=== PATIENT | male | born 1970 | race Caucasian/White ===

== ENCOUNTER 2023-09-21 15:06 | Emergency (ER) | payer OTHER, SELFPAY ==
[2023-09-21 15:10] VITALS: BP 195/94
--- NOTE | 2023-09-21 15:57 | ED.GENMED ---
History of Present Illness
General
Chief Complaint: Skin Problem
Time Seen by Provider: 09/21/23 15:35
Travel History
Have you had any contact with someone who has COVID-19?: No
Do you have any symptoms of coronavirus? Fever > 100 degrees, chills, cough, shortness of breath, sore throat, loss of taste or smell, muscle aches, or headache?: No
History of Present Illness
History of Present Illness:
HPI: The patient comes in with a couple day history of erythema to the tip of the nose. He thinks there may have been some purulent discharge from the left nostril as well. He has had no fevers. He is a diabetic.
EXAM:
GENERAL: Well appearing in no distress
HEENT: Moist oral mucosa, there is erythema noted to the tip of the nose measuring approximately 2 x 2 cm, I did palpate both nostrils and there is no definite palpable abscess to drain
NEUROLOGIC: Excellent strength all extremities, no coordination deficits
PSYCHIATRIC: Appropriate mental status, normal insight and judgement
EXTREMITIES: Nontender, no edema, moves all extremities equally
SKIN: As above
ED COURSE:
3:50 PM: I initially evaluated patient
NUMBER AND COMPLEXITY OF PROBLEMS ADDRESSED AT THE ENCOUNTER
� Chronic conditions affecting care: Diabetes, high blood pressure, hyperlipidemia
� Acute Exacerbation and/or Progression of Chronic Illness: This is an acute problem
� Differential Diagnosis includes: Facial cellulitis, facial abscess, MRSA
AMOUNT AND/OR COMPLEXITY OF DATA TO BE REVIEWED AND ANALYZED
� I performed an independent evaluation of and my interpretation is:
EKG:
CT:
X-rays:
Laboratory Studies:
Other:
� Review of other/old records: Blood sugars in 2018 range from the 100s to 200s
� Clinical information was obtained by an independent historian: I spoke to the the bed
� Prescriptions/Medications Considered but not given:
� Further testing considered but not performed:
RISK OF COMPLICATIONS AND/OR MORBIDITY OR MORTALITY OF PATIENT MANAGEMENT
� Social determinants of health affecting care: Lives at home
� Discussion with other providers:
� Escalation of care including admission/observation vs risk of discharge considered: The patient is well-appearing but is a diabetic. Strongly recommend antibiotics. I have also given a prescription for mupirocin ointment. No
clear indication for admission to the hospital at this time as the area is a relatively small area and he is well-appearing
Past History
Past History
ED Past Medical History: HTN, Hypercholesterolemia and NIDDM
ED Past Surgical History: Other (gastric sleeve 2019, no longer on diabetic medications.)
Social History
Tobacco: Non-smoker
Alcohol: Occasional
Drug: None
Personal:
Living: with family
Family History
Family History: Diabetes
Phy Exam
Physical Exam
Physical Exam:
See HPI
Course
Orders/Labs/Results
Orders:
Orders
09/21/23 15:53
Doxycycline [Vibramycin] 100 mg PO NOW STA
Vital Signs
Initial and Last Documented VS:
Initial Vital Signs
Temp Pulse Resp BP Pulse Ox
97.7 F 70 16 195/94 99
09/21/23 15:10 09/21/23 15:10 09/21/23 15:10 09/21/23 15:10 09/21/23 15:10
Last Documented Vital Signs
Temp Pulse Resp BP Pulse Ox
97.7 F 70 16 195/94 99
09/21/23 15:10 09/21/23 15:10 09/21/23 15:10 09/21/23 15:10 09/21/23 15:10
*Critical Care Note
Total Time (30-74mins, 75-104mins- exclusive of procedures): Not Applicable
ED Attending Note
-
Portions of this chart may have been created with voice recognition software.� Occasional wrong word or��sound alike� substitutions may have occurred due to the inherent limitations of voice recognition software.
Discharge Plan
Departure
Patient Disposition: Home (Routine Discharge)
Date of Disposition: 09/21/23
Time of Disposition: 15:54
Patient with high blood pressure during this ER visit?: Yes
Discharge Problem:
Cellulitis
Instructions: Cellulitis (Skin Infection), Adult (DC), BLOOD PRESSURE
Prescriptions:
New
doxycycline hyclate 100 mg capsule
100 mg PO BID Qty: 14 0RF
mupirocin 2 % ointment
1 applic topical BID Qty: 15 0RF
Rx Instructions:
apply to nostrils twice daily
No Action
atorvastatin 40 MG tablet
40 mg PO QPM
lisinopril-hydrochlorothiazide 1 EACH tablet
1 ea PO BID
glyburide-metformin 1 EACH tablet
2 tab PO BID
pioglitazone 30 MG tablet
30 mg PO DAILY
fenofibrate nanocrystallized 145 MG tablet
145 mg PO QPM
cephalexin 250 MG capsule
250 mg PO QID Qty: 56 0RF
Rx Instructions:
take 4 times per day with 500mg (to make 750mg) for 2 weeks
cephalexin 500 MG capsule
500 mg PO QID Qty: 56 0RF
Rx Instructions:
take 4 times per day with 250mg (to make 750mg) for 2 weeks
cephalexin [Keflex] 500 MG capsule
500 mg PO QID Qty: 40 0RF
sulfamethoxazole-trimethoprim 1 TABLET tablet
1 tab PO BID Qty: 14 0RF
cephalexin 500 MG capsule
500 mg PO BID Qty: 14 0RF
amoxicillin-pot clavulanate 875-125 mg tablet
1 tab PO BID Qty: 14 0RF
Referrals:
Bayard,Esther H., AGRICULTURAL ENGINEERING TEACHER [Family Provider] -
Activity Restrictions/Additional Instructions:
Apply mupirocin ointment inside your nostrils twice daily. Return here if worse. I also recommend you follow your primary care doctor for blood pressure reevaluation as your blood pressure is markedly elevated here.
[2023-09-21 16:10] VITALS: BMI 43.9
[2023-09-21] MEDS: VIBRAMYCIN 100 MG PO (16:12)
[2023-09-21 16:15] VITALS: BP 177/97
== END 2023-09-21 16:19 | disposition home or self-care (01) ==
LOC: EMR 15:06
PROVIDERS: EMERGENCY PHYSICIAN Emergency Medicine; FAMILY PHYSICIAN Nurse Practitioner Family
DX: J34.0 Abscess, furuncle and carbuncle of nose (principal); E11.9 Type 2 diabetes mellitus without complications; E78.00 Pure hypercholesterolemia, unspecified; I10 Essential (primary) hypertension; Z83.3 Family history of diabetes mellitus; Z98.84 Bariatric surgery status
CPT/HCPCS: 99282

== ENCOUNTER 2023-09-23 10:59 | Emergency (ER) | payer OTHER, SELFPAY ==
[2023-09-23 11:12] VITALS: BP 179/95
--- NOTE | 2023-09-23 12:48 | ED.GENMED ---
History of Present Illness
General
Chief Complaint: Skin Problem
Time Seen by Provider: 09/23/23 12:45
Travel History
Have you had any contact with someone who has COVID-19?: No
Do you have any symptoms of coronavirus? Fever > 100 degrees, chills, cough, shortness of breath, sore throat, loss of taste or smell, muscle aches, or headache?: No
History of Present Illness
History of Present Illness:
HPI: I saw this patient 2 days ago. At that time there was concern for soft tissue infection at the tip of the nose/left nostril region. He is a diabetic. We placed him on doxycycline. He comes back today because symptoms have been worsening.
EXAM:
GENERAL: Well appearing in very mild distress
HEENT: Erythema noted to the distal aspect of the soft tissue of the nose, there appears to be a little bit more of a palpable abscess in comparison to when I saw the patient 2 days ago but this is relatively minor
NEUROLOGIC: Excellent strength all extremities, no coordination deficits
PSYCHIATRIC: Appropriate mental status, normal insight and judgement
EXTREMITIES: Nontender, no edema, moves all extremities equally
SKIN: No rash, no lesions
ED COURSE:
12:30 PM: I initially evaluated patient
NUMBER AND COMPLEXITY OF PROBLEMS ADDRESSED AT THE ENCOUNTER
� Chronic conditions affecting care: The patient is a diabetic
� Acute Exacerbation and/or Progression of Chronic Illness: This is an ongoing problem which is acute
� Differential Diagnosis includes: Soft tissue infection, abscess, diabetes complication
AMOUNT AND/OR COMPLEXITY OF DATA TO BE REVIEWED AND ANALYZED
� I performed an independent evaluation of and my interpretation is:
EKG:
CT: I personally reviewed CT imaging and there does appear to be a subcentimeter cystic lesion at the tip of the nose more so on the left side consistent with the location of his concern
X-rays:
Laboratory Studies: White count minimally elevated 11.6, glucose 132
Other:
� Review of other/old records: The patient was admitted with osteomyelitis in 2018
� Clinical information was obtained by an independent historian: I spoke to the at bedside
� Prescriptions/Medications Considered but not given:
� Further testing considered but not performed:
RISK OF COMPLICATIONS AND/OR MORBIDITY OR MORTALITY OF PATIENT MANAGEMENT
� Social determinants of health affecting care: Lives at home
� Discussion with other providers: I initially spoke to ID to get their in put. ID, Dr. Willett recommended admission to the hospital for IV antibiotics.
� Escalation of care including admission/observation vs risk of discharge considered: I notified patient of the blood work results and ID's recommendation. The patient now tells me that he absolutely has to leave before 4 PM for
a meeting that he cannot miss. He said he will come back later tonight for reevaluation, probable admission. I have offered and recommended keeping the patient in the hospital for IV antibiotics but the patient currently declines. I did perform a
needle aspiration after an initial attempt at scalpel incision/drainage which was performed. On the needle aspiration, there was less than 1 mL of purulent drainage removed. Will send this sample down for another wound culture. The patient states
he will come back for admission to the hospital tonight as infectious disease did recommend (via [place] text) that he should be admitted to the hospital. Of note the patient has had osteomyelitis in the past and is a diabetic.
Past History
Past History
ED Past Medical History: HTN, Hypercholesterolemia and NIDDM
ED Past Surgical History: Other (gastric sleeve 2019, no longer on diabetic medications.)
Social History
Tobacco: Non-smoker
Alcohol: Occasional
Drug: None
Personal:
Living: with family
Family History
Family History: Diabetes
Phy Exam
Physical Exam
Physical Exam:
See HPI
Course
Orders/Labs/Results
Orders:
Orders
09/23/23 13:14
Basic Metabolic Panel Urgent
Complete Blood Count/With Diff Urgent
09/23/23 13:17
Ketorolac [Toradol] 15 mg IV NOW STA
09/23/23 13:18
CT Facial Bones W/ Iv Contrast Urgent
Comment:
Reason For Exam: eval for L nasalabscess; failing outpt mgnt
09/23/23 13:22
Wound Culture [Wound/Abscess/Other Culture] Urgent
KANIKA Source: Skin Surface
Specimen Description:
Date Specimen was Collected: 09/23/23
Time Specimen was Collected: 13:18
09/23/23 13:32
Clindamycin 600 mg/50 ml [Cleocin] 600 mg in 50 ml IV NOW
09/23/23 15:42
Wound Culture [Wound/Abscess/Other Culture] Urgent
KANIKA Source: Abscess
Specimen Description:
Abnormal Lab Results
09/23/23
13:14
WBC 11.6 H 10^3/uL
(4.8-10.8)
RBC 4.42 L 10^6/uL
(4.70-6.10)
Hct 37.0 L %
(39.0-52.0)
Absolute Neuts (auto) 8.2 H 10^3/uL
(1.4-6.5)
Absolute Monos (auto) 0.8 H 10^3/uL
(0.1-0.6)
Glucose 132 H mg/dl
(70-99)
09/23/23 13:14
09/23/23 13:14
Vital Signs
Initial and Last Documented VS:
Initial Vital Signs
Temp Pulse Resp BP Pulse Ox
98.0 F 75 20 179/95 98
09/23/23 11:12 09/23/23 11:12 09/23/23 11:12 09/23/23 11:12 09/23/23 11:12
Last Documented Vital Signs
Temp Pulse Resp BP Pulse Ox
98.0 F 75 20 179/95 98
09/23/23 11:12 09/23/23 11:12 09/23/23 11:12 09/23/23 11:12 09/23/23 11:12
Procedures
Incision/Drainage/Joint Aspiration
Left Anterior Face:
Anethesia: 1% Lidocaine
Preparation: cleaned with alcohol wipe
Type of procedure: incise
Nature of site: abscess
Description of abscess: less than 3cm
Loculations broken up: No
How much fluid was obtained?: scant amount
Fluid description: bloody
Treatment: left open for drainage
Additional information:
There is no purulent drainage noted, I incised a subcentimeter region just inside the distal tip of the left nostril medially
*Critical Care Note
Total Time (30-74mins, 75-104mins- exclusive of procedures): Not Applicable
ED Attending Note
-
Portions of this chart may have been created with voice recognition software.� Occasional wrong word or��sound alike� substitutions may have occurred due to the inherent limitations of voice recognition software.
Discharge Plan
Departure
Patient Disposition: Home (Routine Discharge)
Date of Disposition: 09/23/23
Time of Disposition: 15:40
Patient with high blood pressure during this ER visit?: Yes
Discharge Problem:
Abscess of external nose
Instructions: Skin Abscess
Prescriptions:
No Action
atorvastatin 40 MG tablet
40 mg PO QPM
lisinopril-hydrochlorothiazide 1 EACH tablet
1 ea PO BID
glyburide-metformin 1 EACH tablet
2 tab PO BID
pioglitazone 30 MG tablet
30 mg PO DAILY
fenofibrate nanocrystallized 145 MG tablet
145 mg PO QPM
cephalexin 250 MG capsule
250 mg PO QID Qty: 56 0RF
Rx Instructions:
take 4 times per day with 500mg (to make 750mg) for 2 weeks
cephalexin 500 MG capsule
500 mg PO QID Qty: 56 0RF
Rx Instructions:
take 4 times per day with 250mg (to make 750mg) for 2 weeks
cephalexin [Keflex] 500 MG capsule
500 mg PO QID Qty: 40 0RF
sulfamethoxazole-trimethoprim 1 TABLET tablet
1 tab PO BID Qty: 14 0RF
cephalexin 500 MG capsule
500 mg PO BID Qty: 14 0RF
amoxicillin-pot clavulanate 875-125 mg tablet
1 tab PO BID Qty: 14 0RF
doxycycline hyclate 100 mg capsule
100 mg PO BID Qty: 14 0RF
mupirocin 2 % ointment
1 applic topical BID Qty: 15 0RF
Rx Instructions:
apply to nostrils twice daily
Referrals:
UNKNOWN - PT DOES,NOT KNOW [Family Provider] -
Activity Restrictions/Additional Instructions:
I did drain less than 1 mL of purulent drainage with needle aspiration. Her white count is slightly high at 11.6. I did speak to the infectious disease doctor and she does recommend that you be admitted to the hospital. At this point you have
stated that you needed to leave. I encourage you to return for admission to the hospital for further management.
Interventions
Interventions:
*Risk Screen - Suicide Last Done: 09/23/23 13:32
*General Assessment Last Done: 09/23/23 13:05
*Neglect/Abuse Screening Last Done: 09/23/23 13:05
[2023-09-23] MEDS: TORADOL 15 MG IV (13:21)
[2023-09-23 13:22] LABS: % Basophils 0.4 % (0-2); % Eosinophils 1.4 % (0-6); % Immature Granulocytes 0.3 % (0-0.5); % Lymphocytes 20.7 % (20.5-51.1); % Monocytes 6.9 % (1.7-9.3); % Neutrophils 70.3 % (42.2-75.2); Absolute Basophils 0.1 10^3/uL (0-0.2); Absolute Eosinophils 0.2 10^3/uL (0-0.7); Absolute Lymphocytes 2.4 10^3/uL (1.2-3.4); Absolute Monocytes 0.8 10^3/uL (0.1-0.6); Absolute Neutrophils 8.2 10^3/uL (1.4-6.5); Hemoglobin 13.2 g/dL (13.0-18.0); Mean Corp Hgb Conc. 35.7 g/dL (33.0-37.0); Mean Corpuscular Hgb 29.9 pg (27.0-31.0); Mean Corpuscular Volume 83.7 fL (80.0-94.0); Mean Platelet Volume 10.4 fL (7.4-10.4); Nucleated Red Blood Cells % 0 % (-); Platelet Count 231 10^3/uL (130-400); Red Blood Cell Count 4.42 10^6/uL (4.70-6.10); White Blood Cell Count 11.6 10^3/uL (4.8-10.8)
[2023-09-23 13:29] VITALS: BMI 44.5
[2023-09-23 13:43] LABS: Blood Urea Nitrogen 19 mg/dl (9-20); Calcium 9.2 mg/dl (8.4-10.2); Carbon Dioxide 29 mmol/L (22-30); Chloride 106 mmol/L (98-107); Estimated Creatinine Clearance > 125 ml/min; Glucose 132 mg/dl (70-99); Potassium 4.5 mmol/L (3.5-5.1); Sodium 139 mmol/L (135-145); eGFR > 60.00
[2023-09-23] MEDS: CLEOCIN 50 IV (13:57)
== END 2023-09-23 16:02 | disposition home or self-care (01) ==
LOC: EMR 10:59
PROVIDERS: EMERGENCY PHYSICIAN Emergency Medicine; FAMILY PHYSICIAN Nurse Practitioner Family
DX: J34.0 Abscess, furuncle and carbuncle of nose (principal); I10 Essential (primary) hypertension; E78.00 Pure hypercholesterolemia, unspecified; E11.69 Type 2 diabetes mellitus with other specified complication; Z83.3 Family history of diabetes mellitus; Z98.84 Bariatric surgery status
CPT/HCPCS: 10060; 70487; 80048; 85025; 87070; 87147; 87186; 87205; 96365; 96375; 99284; Q9967

== ENCOUNTER 2023-09-23 21:23 | Inpatient (IN) | payer OTHER, SELFPAY ==
[2023-09-23 19:00] VITALS: BP 201/90
--- NOTE | 2023-09-23 20:15 | ED.GENMED ---
History of Present Illness
General
Chief Complaint: Skin Problem
Source: patient
Time Seen by Provider: 09/23/23 20:12
Travel History
Have you had any contact with someone who has COVID-19?: No
Do you have any symptoms of coronavirus? Fever > 100 degrees, chills, cough, shortness of breath, sore throat, loss of taste or smell, muscle aches, or headache?: No
History of Present Illness
History of Present Illness:
53-year-old male with past medical history of hypertension, hyperlipidemia and diabetes seen earlier in this emergency department today for a nasal abscess/cellulitis, had incision and drainage done and was given a dose of antibiotics, it was
recommended to be admitted but patient had to go home to complete some tasks and then came back to the emergency department to be admitted. Patient has no new concerns at this time. Denies any fevers.
Past History
Past History
ED Past Medical History: HTN, Hypercholesterolemia and NIDDM
ED Past Surgical History: Other (gastric sleeve 2019, no longer on diabetic medications.)
Social History
Tobacco: Non-smoker
Alcohol: Occasional
Drug: None
Personal:
Living: with family
Family History
Family History: Diabetes
Review of Systems
Review of Systems
All Other Systems: ROS reviewed and negative except as documented in HPI and ROS
Phy Exam
Physical Exam
Physical Exam:
GENERAL: Alert , in no apparent distress
EYE: conjunctiva clear
Head: Normocephalic atraumatic,
NECK: Supple,
ENT: mmm. Significant erythema and edema of the nose with increased warmth and tenderness to palpation
LUNGS: no acute respiratory distress
NEUROLOGICAL: Alert and oriented
SKIN: Warm and dry, skin intact.
MUSCULOSKELETAL: well perfused.
PSYCH: Normal and appropriate interaction.
Scores
Heart Failure Risk
Heart Failure Risk Score: Not Applicable
Heart Score for Chest Pain Patients
STEMI patient?: Not applicable
Withdrawal Assessment of Alcohol
Withdrawal Assessment Completed?: Not applicable
Course
Orders/Labs/Results
Orders:
Orders
09/23/23 20:13
IV Insert/Care/Rem.- Treatment PRN
Clindamycin 600 mg/50 ml [Cleocin] 600 mg in 50 ml IV NOW
09/23/23 20:19
Ibuprofen [Motrin] 600 mg PO NOW STA
Vital Signs
Initial and Last Documented VS:
Initial Vital Signs
Temp Pulse Resp BP Pulse Ox
97.5 F 79 19 201/90 97
09/23/23 19:00 09/23/23 19:00 09/23/23 19:00 09/23/23 19:00 09/23/23 19:00
Last Documented Vital Signs
Temp Pulse Resp BP Pulse Ox
97.5 F 79 19 201/90 97
09/23/23 19:00 09/23/23 19:00 09/23/23 19:00 09/23/23 19:00 09/23/23 19:00
MDM/Problems Addressed
Differential Diagnosis Includes:
Cellulitis, abscess, no concern for fracture or trauma
MDM/Problems Addressed:
53-year-old male presenting back to the emergency department after being seen earlier today was recommended to be admitted for IV antibiotics by infectious disease. Presents back to the emergency department for IV antibiotics. No further incision
needed at this time. Will notify hospitalist team to evaluate with plan for admission and continued IV antibiotics.
*Pulse Oximetry
Patient hypoxic: no
*Critical Care Note
Total Time (30-74mins, 75-104mins- exclusive of procedures): Not Applicable
Data Reviewed
Review of Other/Old Records Reveals: Records and Radiology Studies
Patient Management
Discussion with other providers: Hospitalist
Escalation/DeEscalation of care consider admission/obs:
Hospitalist is aware and accepts patient for continued evaluation and treatment.
ED Attending Note
-
Portions of this chart may have been created with voice recognition software.� Occasional wrong word or��sound alike� substitutions may have occurred due to the inherent limitations of voice recognition software.
Discharge Plan
Departure
Patient Disposition: Admit
Date of Disposition: 09/23/23
Time of Disposition: 20:21
Presentation/result/management discussed w/ accepting MD/DO: Hospitalist
Discharge Problem:
Abscess of nose, Cellulitis, face
Prescriptions:
No Action
doxycycline hyclate 100 mg capsule
100 mg PO BID Qty: 14 0RF
mupirocin 2 % ointment
1 applic topical BID Qty: 15 0RF
Rx Instructions:
apply to nostrils twice daily
metformin 500 mg tablet
1,000 mg PO BID@0800,1700
atorvastatin 10 mg tablet
10 mg PO HS
amlodipine 5 mg tablet
5 mg PO DAILY
lisinopril-hydrochlorothiazide 20-25 mg tablet
1 tab PO DAILY
tadalafil 10 mg tablet
10 mg PO DAILY PRN (Reason: ed)
Trulicity 1.5 mg/0.5 mL pen injector
1.5 mg SC WEEKLY
Interventions
Interventions:
*Risk Screen - Suicide Last Done: 09/23/23 19:00
*General Assessment Last Done: 09/23/23 19:00
*Neglect/Abuse Screening Last Done: 09/23/23 19:00
*ED COVID-19 Vaccine History Last Done: 09/23/23 19:00
--- NOTE | 2023-09-23 20:46 | HPS.HSE ---
Family Physician
-
Family Physician:
Chief Complaint
-
nasal pain
History of Present Illness
53-year-old male past medical history of hypertension, hypercholesteremia, diabetes, gastric sleeve, osteomyelitis presenting for worsening redness at the tip of his nose for the past 4 days. He came to the emergency room 2 days ago and started on
doxycycline with worsening of symptoms. He came to the emergency room earlier today and EGD performed needle aspiration and I&D with less than 1 mL purulent drainage removed. Wound culture was sent. Patient had to leave the hospital before 4 PM
for a meeting but then came back to the hospital later for admission.
He denies any drainage from the nose there is some roughness and irritation in the left nostril. He denies any fevers or chills.
Denies smoking or alcohol use.
Medical History
Past Medical History
Past Medical History: Reports Other ( hypertension, hypercholesteremia, diabetes, gastric sleeve, osteomyelitis)
Past Surgical History: Reports Other (gastric sleeve )
Social History
Tobacco: Non-smoker
Alcohol: None
Drug: None
Family History
Family History: Not pertinent
Allergies / Home Medications
Allergies reflects when Allergies were last updated in [facility].
Home Medications with original date entered in [facility]
Allergy/Medication List:
Allergies
Allergy/AdvReac Type Severity Reaction Status Date / Time
No Known Allergies Allergy Verified 09/23/23 19:00
Home Medications
doxycycline hyclate 100 mg capsule 100 mg PO BID #14 caps 09/21/23
mupirocin 2 % topical ointment 1 applic topical BID #15 grams 09/21/23
atorvastatin 10 mg tablet 10 mg PO HS 09/23/23
dulaglutide 1.5 mg/0.5 mL subcutaneous pen injector (Trulicity) 1.5 mg SC WILSON 09/23/23
lisinopril 20 mg-hydrochlorothiazide 25 mg tablet 1 tab PO DAILY 09/23/23
metformin 500 mg tablet 500 mg PO BID@0800,1700 09/23/23
multivitamin 1 tab PO DAILY 09/23/23
omega 3-gqw-swm-fish oil 1,000 mg (120 mg-180 mg) capsule (Fish Oil) 1 cap PO DAILY 09/23/23
tadalafil 10 mg tablet 10 mg PO DAILY PRN ed 09/23/23
Review of Systems
-
History Source: Patient
A 12 point ROS was completed and negative except as noted: Yes
Constitutional: Reports No Symptoms
EENT: Reports See HPI
Respiratory: Reports No Symptoms
Cardiac: Reports No Symptoms
Abdomen/GI: Reports No Symptoms
: Reports No Symptoms
Musculoskeletal: Reports No Symptoms
Skin: Reports No Symptoms
Neurological: Reports No Symptoms
Endocrine: Reports No Symptoms
Hematologic/Lymphatic: Reports No Symptoms
Psych: Reports No Symptoms
Physical Exam
Vital Signs
Vital Signs
Temp Pulse Resp BP Pulse Ox
97.5 F 79 19 201/90 97
09/23/23 19:00 09/23/23 19:00 09/23/23 19:00 09/23/23 19:00 09/23/23 19:00
Physical Exam
General: Well Developed, Well Nourished and No Apparent Distress
HEENT: NormoCephalic, Moist mucous membranes, Atraumatic and Other (nasal tenderness )
Respiratory: Clear
Cardiac: S1/S2 and Regular Rhythm; No Murmur or Rub
GI: Soft, Non Tender, Non Distended and Normal Bowel Sounds; No Organomegaly
Rectal: Deferred by Provider
Musculoskeletal: No Clubbing, No Cyanosis and No Edema
Skin: No Rash
Neuro: Nonfocal/grossly intact
Data Reviewed
-
Lab Data: Labs Reviewed by me
Old Records: Reviewed
Impression/Plan
-
IMPRESSION:
PLAN:
# Nasal abscess
-CT facial bones shows collection on the nose concerning for edema/infection
-I&D culture pending
-Clindamycin
-ID consulted
Essential hypertension
-Continue amlodipine, lisinopril/hydrochlorothiazide
Hypercholesterolemia
-Continue statin
Type 2 diabetes
-Continue metformin
History of gastric sleeve
Obesity
History of right great toe osteomyelitis status post partial toe amputation/debridement
Full code
DVT prophylaxis�heparin
Regular diet
[2023-09-23] MEDS: MOTRIN 600 MG PO (20:50)
[2023-09-23 21:52] VITALS: BP 201/102; BMI 45.0
[2023-09-23] MEDS: CLEOCIN 50 IV (22:26)
[2023-09-23] MEDS: APRESOLINE 5 MG IV (22:27)
[2023-09-23] MEDS: LIPITOR 10 MG PO (22:27)
[2023-09-23] MEDS: GLUCOPHAGE 500 MG PO (22:27)
[2023-09-23 23:41] VITALS: BP 162/82
[2023-09-24] MEDS: MOTRIN 400 MG PO ×3 (01:45→17:43)
[2023-09-24] MEDS: CLEOCIN 50 IV ×2 (03:44→09:44)
[2023-09-24] MEDS: TYLENOL 650 MG PO ×2 (03:55→22:54)
[2023-09-24 08:00] VITALS: BP 171/84
[2023-09-24 08:44] LABS: % Basophils 0.4 % (0-2); % Eosinophils 1.7 % (0-6); % Immature Granulocytes 0.4 % (0-0.5); % Lymphocytes 23.8 % (20.5-51.1); % Monocytes 6.4 % (1.7-9.3); % Neutrophils 67.3 % (42.2-75.2); Absolute Eosinophils 0.2 10^3/uL (0-0.7); Absolute Lymphocytes 2.7 10^3/uL (1.2-3.4); Absolute Monocytes 0.7 10^3/uL (0.1-0.6); Absolute Neutrophils 7.6 10^3/uL (1.4-6.5); Hematocrit 35.7 % (39.0-52.0); Hemoglobin 12.6 g/dL (13.0-18.0); Mean Corp Hgb Conc. 35.3 g/dL (33.0-37.0); Mean Corpuscular Hgb 29.9 pg (27.0-31.0); Mean Corpuscular Volume 84.6 fL (80.0-94.0); Mean Platelet Volume 10.8 fL (7.4-10.4); Nucleated Red Blood Cells % 0 % (-); Platelet Count 243 10^3/uL (130-400); Red Blood Cell Count 4.22 10^6/uL (4.70-6.10); Red Cell Dist. Width 13.8 % (11.5-14.5); White Blood Cell Count 11.3 10^3/uL (4.8-10.8)
[2023-09-24] MEDS: GLUCOPHAGE 500 MG PO ×2 (08:51→19:34)
[2023-09-24] MEDS: ORETIC 25 MG PO (08:51)
[2023-09-24] MEDS: ZESTRIL 20 MG PO (08:51)
[2023-09-24] MEDS: THERAGRAN 1 TABLET PO (08:51)
[2023-09-24] MEDS: BACTROBAN 2% OINTMENT 1 APPLIC TOPICAL ×2 (08:51→19:36)
--- NOTE | 2023-09-24 08:58 | W.PN.HOSP.TC ---
Today's Communication/Plan
-
Continue present course of clindamycin
Await ID input and culture results
Monitor blood sugars and BP
Assessment / Plan
Assessment / Plan
53-year-old male past medical history of hypertension, hypercholesteremia, diabetes, gastric sleeve, osteomyelitis presenting for worsening redness at the tip of his nose for the past 4 days.� He came to the emergency room 2 days ago and started on
doxycycline with worsening of symptoms.� He came to the emergency room earlier today and EGD performed needle aspiration and I&D with less than 1 mL purulent drainage removed.� Wound culture was sent.� Patient had to leave the hospital before 4 PM
for a meeting but then came back to the hospital later for admission.
He denies any drainage from the nose there is some roughness and irritation in the left nostril.� He denies any fevers or chills.
Denies smoking or alcohol use.
# Nasal abscess
-CT facial bones shows collection on the nose concerning for edema/infection
-Results with initial course of outpatient doxycycline
-MRSA screen pending
-I&D culture pending
-Clindamycin
-ID consulted
Essential hypertension
-Continue amlodipine, lisinopril/hydrochlorothiazide
Hypercholesterolemia
-Continue statin
Type 2 diabetes
-Continue metformin
History of gastric sleeve
Obesity
History of right great toe osteomyelitis status post partial toe amputation/debridement
Full code
DVT prophylaxis�heparin
Regular diet
Anticipated Discharge: Within 24 hours
Subjective/Interval History
-
Date of Service: September 24, 2023
Tenderness to the left there is redness of the nose
Objective Data
-
Labs:
Laboratory Results
09/24/23
08:03
WBC 11.3 H
Hgb 12.6 L
Hct 35.7 L
Plt Count 243
Sodium Pending
Potassium Pending
Chloride Pending
Carbon Dioxide Pending
BUN Pending
Creatinine Pending
Glucose Pending
Calcium Pending
Total Bilirubin Pending
AST Pending
ALT Pending
Alkaline Phosphatase Pending
Vital Signs:
Vital Signs
Temp Pulse Resp BP Pulse Ox
97.8 F 63 16 171/84 99
09/24/23 08:00 09/24/23 08:51 09/24/23 08:00 09/24/23 08:51 09/24/23 08:00
Review of Systems
-
Constitutional: Reports No Symptoms
EENT: Denies Bloody Nose (Tender medial aspect of left nares)
Respiratory: Reports No Symptoms
Skin: Reports Sores
Physical Exam
-
General: Well Developed
HEENT: Normocephalic; Negative Nose Appears Normal (Left nares medial aspect tender swollen with surrounding erythema to tip of nose no drainage)
Respiratory: Clear to Auscultation
Cardiac: Regular Rhythm
GI: Soft and Nontender
Genito-urinary: Costovertebral Angle Tend
Neuro: Awake, Alert, Oriented and AO x 3
Data Reviewed
-
Total Time Spent with Patient (in minutes): 45
Diagnostic Radiology: Report Reviewed by me (Curved banana shaped low-density collection in the anterior inferior aspect of the nose measuring 7 x 7 x 22 mm)
Labs: Labs Reviewed by me (Initial white count 11.62 pending morning labs)
[2023-09-24 09:13] LABS: ALT (SGPT) 14 U/L (0-50); AST (SGOT) 18 U/L (17-59); Albumin 3.2 g/dl (3.5-5.0); Alkaline Phosphatase 101 U/L (38-126); Blood Urea Nitrogen 21 mg/dl (9-20); Calcium 9.1 mg/dl (8.4-10.2); Carbon Dioxide 28 mmol/L (22-30); Chloride 102 mmol/L (98-107); Estimated Creatinine Clearance 113 ml/min; Glucose 163 mg/dl (70-99); Potassium 4.6 mmol/L (3.5-5.1); Sodium 139 mmol/L (135-145); Total Protein 6.3 g/dl (6.3-8.2); eGFR > 60.00
[2023-09-24 11:01] VITALS: BP 179/97
--- NOTE | 2023-09-24 13:19 | CM ---
Patient seen, initial assessment completed. Patient reports he resides in a multiple story home with his , denies DME, VN, or SNF. Patient confirms PCP Dr. Velazquez, pharmacy [facility]. CM will continue to follow for discharge planning
needs.
Plan; home no needs anticipated.
--- NOTE | 2023-09-24 13:33 | WOUNDNOTE ---
[facility] RN NOTE: Reviewed chart, met with patient. Patient refused assessment at this time. He said the nurse recently wrapped his foot and he did not want to be assessed at this time. He said he follows with [employer], Dr. Guzman weekly. Will try again
at later date. JEAN PAUL Rondon and hospitalist updated.
--- NOTE | 2023-09-24 14:18 | CON.ID ---
Consultation
-
Date/Time Consultation Requested: 09/23/23 21:46
Date/Time Consultation Performed: 09/24/23 14:18
Requesting Provider: Dr Alvarado
Performing Provider: Dr Martinez
Reason for Consultation: nose abscess
Chief Complaint / Past History
Chief Complaint
nose abscess
History of Present Illness
Mr De Oliveira is a 53 year old male with history notable for DM2, class III obesity he first presented here on 09/21 to the ER for erythema of the tip of the nose, purulent drainage from the L nostril, he was prescribed doxycycline, took this for two
days with progression, represented here 09/23 same MD reassessed and felt minimal progression on exam - needle aspiration attempted with 1 ml of purulent drainage removed - sent for culture and has subsequently resulted with s aureus, no blood
cultures done thus far, patient had an appointment at 4 pm left the ER and represented same evening after the appointment for admission.
Since arrival here this admission he has been afebrile, bp consistently hypertensive, wbc 11.3, hgb 12.6, plt 243, no L shift, cr 1.1 from baseline of 0.9, a1c last assessed 05/2018 and was 11.7, aspirate s aureus, currently on clindamycin, CT
facial bones with IV contrast: possible developing abscess with enlarged tonsils. ID is consulted for assistance with management.
Past History
Additional Past Medical History:
hypertension, hypercholesteremia, diabetes, gastric sleeve
Denies any history of osteomyelitis
Additional Past Surgical History:
gastric sleeve
Allergy History:
No Known Allergies Allergy (Verified 09/23/23 19:00)
Medications Reviewed: Yes
Social History
Tobacco: Non-Smoker
Alcohol: None
Drug: None
Family History
Family History: Not Pertinent
Review of Systems
Review of Systems
General: Negative Fever or Chills
All systems: All other systems were reviewed and were negative
Vital Signs
Temp Pulse Resp BP Pulse Ox
97.8 F 63 16 179/97 99
09/24/23 08:00 09/24/23 11:01 09/24/23 08:00 09/24/23 11:01 09/24/23 09:05
Physical Exam
Physical Exam
Constitutional: No Acute Distress and Obese
Head: Other (nose tip swollen, red tender, hot, peau dorange)
Cardiovascular: Regular Rate and S1/S2; Negative Murmur or Rub
Pulmonary: Clear and Symmetric; Negative Wheezes, Rales or Rhonchi
Gastrointestinal: Soft, Non Tender, Non Distended and Normal Bowel Sounds
Skin: Warm and Dry; Negative Rash or Jaundice
Lab / Diagnostic Study Results
09/24/23 08:03
09/24/23 08:03
Abs Immat Gran (auto) 0.0 10^3/uL (0-0.05) 09/24/23 08:03
Absolute Neuts (auto) 7.6 10^3/uL (1.4-6.5) H 09/24/23 08:03
Absolute Lymphs (auto) 2.7 10^3/uL (1.2-3.4) 09/24/23 08:03
Absolute Monos (auto) 0.7 10^3/uL (0.1-0.6) H 09/24/23 08:03
Absolute Basos (auto) 0.0 10^3/uL (0-0.2) 09/24/23 08:03
Immature Gran % 0.4 % (0-0.5) 09/24/23 08:03
Neutrophils % 67.3 % (42.2-75.2) 09/24/23 08:03
Lymphocytes % 23.8 % (20.5-51.1) 09/24/23 08:03
Monocytes % 6.4 % (1.7-9.3) 09/24/23 08:03
Eosinophils % 1.7 % (0-6) 09/24/23 08:03
Basophils % 0.4 % (0-2) 09/24/23 08:03
Microbiology Results
Micro:
09/23/23 22:48 MRSA Screen - Pending
Nose
Assessment / Plan
Nasal Cellulitis with small abscess
Class III Obesity
DM2
- s/p aspiration of the small fluid collection - culture with S aurues
- suspect tonsils enlarged secondary to lymphatic draingae from the tip of the nose
- blood cultures x2
- check a1c
- start vancomycin and high dose cefazolin for now; stop clindamycin
- add probiotics
- follow clinically
Patient requesting d/c advised him firmly that I would not recommend discharge unless it was against medical advice. He risks sepsis, bacteremia, endocarditis, stroke, cerebral abscess, and
--- NOTE | 2023-09-24 15:19 | PHA.VAN.IN ---
Assessment
- Assessment
Renal Function: Appears elevated from baseline (SCR similar but possible slightly elevated at 1.1 vs 0.9 )
Concomitant Antimicrobials: cefazolin
Plan
- Plan
Initial / Loading Dose: Divided load 1500mg x1 now then at 22:00
Maintenance Regimen: dosing by level initially
Monitoring: random 09/25 599
Will follow by level initially to ensure achieving therapeutic level with BMI
Anticipate estimated clearance likely overestimated due to weight
Pharmacokinetics Vancomycin I
- -
Patient Age: 53
Patient Sex: Male
Vancomycin Day #: 1
Indication: Skin And Soft Tissue
Requesting Provider: Dr. Martinez
Pertinent Antimicrobial Allergies:
NKDA
Height / Weight:
Height 5 ft 10 in
Actual Weight 142.201 kg
Pertinent Past Medical History: BMI ~45, DM III
- Vital Signs / Lab Results
Temp Pulse Resp BP Pulse Ox
97.8 F 63 16 179/97 99
09/24/23 08:00 09/24/23 11:01 09/24/23 08:00 09/24/23 11:01 09/24/23 09:05
Lab Results - Hematology
09/24/23
08:03
WBC 11.3 H
Lab Results - Chemistry
09/24/23
08:03
BUN 21 H
Creatinine 1.1
Estimated Creat Clear 113
Albumin 3.2 L
[2023-09-24] MEDS: VISBIOME 2 CAP PO (15:33)
[2023-09-24] MEDS: APRESOLINE 5 MG IV (15:34)
[2023-09-24 15:42] VITALS: BP 193/96
[2023-09-24] MEDS: VANCOCIN 300 MG IV ×2 (16:02→21:12)
[2023-09-24] MEDS: ANCEF 10 IV ×2 (16:02→21:12)
[2023-09-24] MEDS: VANCOCIN 300 ML IV ×2 (16:02→21:12)
[2023-09-24] MEDS: LIPITOR 10 MG PO (19:35)
[2023-09-24 20:04] VITALS: BP 182/94
[2023-09-24 23:26] VITALS: BP 180/85
[2023-09-25] VITALS (8 sets, daily range): BP systolic 160–190; BP diastolic 77–91
[2023-09-25] MEDS: MOTRIN 400 MG PO ×3 (00:46→20:07)
[2023-09-25] MEDS: ANCEF 10 IV ×2 (04:06→09:48)
[2023-09-25 07:31] LABS: Hematocrit 34.3 % (39.0-52.0); Hemoglobin 12.6 g/dL (13.0-18.0); Mean Corp Hgb Conc. 36.7 g/dL (33.0-37.0); Mean Corpuscular Hgb 30.6 pg (27.0-31.0); Mean Corpuscular Volume 83.3 fL (80.0-94.0); Mean Platelet Volume 10.4 fL (7.4-10.4); Platelet Count 230 10^3/uL (130-400); Red Blood Cell Count 4.12 10^6/uL (4.70-6.10); Red Cell Dist. Width 13.9 % (11.5-14.5)
[2023-09-25 07:51] LABS: Vancomycin Random 13.5 ug/ml
[2023-09-25 07:55] LABS: Blood Urea Nitrogen 26 mg/dl (9-20); Calcium 8.6 mg/dl (8.4-10.2); Carbon Dioxide 27 mmol/L (22-30); Chloride 103 mmol/L (98-107); Estimated Creatinine Clearance 113 ml/min; Glucose 166 mg/dl (70-99); Potassium 4.2 mmol/L (3.5-5.1); Sodium 139 mmol/L (135-145); eGFR > 60.00
--- NOTE | 2023-09-25 08:29 | PHA.VAN.FU ---
Vancomycin Assessment / Plan
- Assessment
Renal Function: Stable
WBC's are: Trending Down
In the past 24 hrs, patient has been: Afebrile
Concomitant Antimicrobials: cefazolin
- Assessment - Therapeutic Drug Monitoring
Random Level: 13.5 - drawn ~9H after split load of 3000mg (1500mg x2)
- Dosing Plan
Adjust Regimen to: Vanc 1500mg Q12H - first dose now then 1800
Patient likely does not follow population PK and SCR remains slightly elevated
- Monitoring Plan
Trough Level: pre-steady state 09/26 05:30 to trend levels with BMI and SCR
- Follow Up
Pharmacy will continue to follow.
Vancomycin Follow UP
- -
Patient Age: 53
Patient Sex: Male
Vancomycin Day #: 2
Indication: Skin And Soft Tissue
Requesting Provider: Dr. Martinez
Pertinent Antimicrobial Allergies:
NKDA
Height / Weight:
Height 5 ft 10 in
Actual Weight 142.201 kg
Pertinent Past Medical History: BMI ~45, DM III
- Vital Signs / Lab Results
Temp Pulse Resp BP Pulse Ox
98.1 F 109 18 173/77 95
09/24/23 23:26 09/25/23 03:19 09/24/23 23:26 09/25/23 03:19 09/24/23 23:26
Lab Results - Hematology
09/24/23 09/25/23
08:03 07:03
WBC 11.3 H 9.0
Lab Results - Chemistry
09/24/23 09/25/23
08:03 07:03
BUN 21 H 26 H
Creatinine 1.1 1.1
Estimated Creat Clear 113 113
Albumin 3.2 L
Microbiology Results
09/23/23 22:48 MRSA Screen - Final
Nose No Methicillin Resistant Staphylococcus aureus isolated.
Therapeutic Drug Monitoring
Random Vancomycin 13.5 ug/ml 09/25/23 07:02
[2023-09-25] MEDS: ORETIC 25 MG PO (08:35)
[2023-09-25] MEDS: BACTROBAN 2% OINTMENT 1 APPLIC TOPICAL ×2 (08:35→20:07)
[2023-09-25] MEDS: GLUCOPHAGE 500 MG PO ×2 (08:35→17:47)
[2023-09-25] MEDS: VISBIOME 2 CAP PO (08:36)
[2023-09-25] MEDS: THERAGRAN 1 TABLET PO (08:36)
[2023-09-25] MEDS: ZESTRIL 20 MG PO ×2 (08:36→13:10)
--- NOTE | 2023-09-25 09:02 | W.PN.HOSP.TC ---
Addendum entered and electronically signed by Patricio Mendez MD 09/25/23 16:58:
Hypertensive urgency
I have increased lisinopril to 40 mg daily
Original Note:
Today's Communication/Plan
-
Continue present course of high-dose cefazolin and vancomycin
Await ID input for suggestions on course of outpatient therapy and follow-up
Assessment / Plan
Assessment / Plan
53-year-old male past medical history of hypertension, hypercholesteremia, diabetes, gastric sleeve, osteomyelitis presenting for worsening redness at the tip of his nose for the past 4 days.� He came to the emergency room 2 days ago and started on
doxycycline with worsening of symptoms.� He came to the emergency room earlier today and EGD performed needle aspiration and I&D with less than 1 mL purulent drainage removed.� Wound culture was sent.� Patient had to leave the hospital before 4 PM
for a meeting but then came back to the hospital later for admission.
He denies any drainage from the nose there is some roughness and irritation in the left nostril.� He denies any fevers or chills.
Denies smoking or alcohol use.
# Nasal abscess
-CT facial bones shows collection on the nose concerning for edema/infection
-Results with initial course of outpatient doxycycline
-MRSA screen was negative
-I&D culture with Staph aureus
-Clindamycin after seen by ID changed to high-dose cefazolin IV and vancomycin
-ID consulted for query and suggestions on outpatient course of management
Essential hypertension
-Continue amlodipine, lisinopril/hydrochlorothiazide
-Will increase lisinopril to 40 mg daily as has persistently elevated blood pressure here
As needed hydralazine ordered also
Hypercholesterolemia
-Continue statin
Type 2 diabetes
-Continue metformin
History of gastric sleeve
Obesity
History of right great toe osteomyelitis status post partial toe amputation/debridement
Full code
DVT prophylaxis�heparin
Regular diet
Anticipated Discharge: Within 24 hours
Subjective/Interval History
-
Date of Service: September 25, 2023
Car is exhibiting less pain involved to the nose there is certainly less redness and swelling today as compared to yesterday.
Objective Data
-
Labs:
Laboratory Results
09/25/23
07:03
WBC 9.0
Hgb 12.6 L
Hct 34.3 L
Plt Count 230
Sodium 139
Potassium 4.2
Chloride 103
Carbon Dioxide 27
BUN 26 H
Creatinine 1.1
Glucose 166 H
Calcium 8.6
Vital Signs:
Vital Signs
Temp Pulse Resp BP Pulse Ox
97.8 F 60 16 171/91 97
09/25/23 08:25 09/25/23 08:35 09/25/23 08:25 09/25/23 08:35 09/25/23 08:25
I&O
09/24/23 09/25/23 09/26/23
06:59 06:59 06:59
Intake Total 800 / 800
Balance 800 / 800
Review of Systems
-
History Source: Patient
Constitutional: Reports No Symptoms
EENT: Reports No Symptoms Reported; Denies Sore Throat or Bloody Nose (Swollen tip of nose less erythematous less tender no drainage)
Respiratory: Reports No Symptoms
Cardiac: Reports No Symptoms
Abdomen/GI: Reports No Symptoms
Physical Exam
-
General: Well Developed
HEENT: Nose Appears Normal (Left swollen and tender tip of nose) and Ears Appear Normal
Respiratory: Clear to Auscultation
Psych: Calm
Data Reviewed
-
Total Time Spent with Patient (in minutes): 45
Labs: Labs Reviewed by me (45)
[2023-09-25 09:24] LABS: Glycohemoglobin (HgbA1c) 7.4 % (4.0-5.6)
[2023-09-25] MEDS: VANCOCIN 300 ML IV ×2 (09:48→17:47)
[2023-09-25] MEDS: VANCOCIN 300 MG IV ×2 (09:48→17:47)
[2023-09-25] MEDS: FLUSH (NSS) 2 FLUSH IV (09:49)
--- NOTE | 2023-09-25 10:35 | W.PN.ID1 ---
Addendum entered and electronically signed by Esther Martinez MD 09/25/23 13:21:
isolate MRSA vanc KANIKA 1
stop cefazolin
add linezolid
would still follow clinically another day
Original Note:
Date of Service
Date of Service: September 25, 2023
Today's Communication
awaiting sensi
- continue vancomycin and high dose cefazolin for at least another day - eventual transition to orals planned pending clinical response
- follow clinically
Assessment / Plan
Nasal Cellulitis with small abscess
Class III Obesity
DM2
- s/p aspiration of the small fluid collection - culture with S aureus awaiting sensi
- blood cultures x2 no growth to date
- a1c fair control - would like to see further improvement outpatient in this young man
- continue vancomycin and high dose cefazolin for at least another day - eventual transition to orals planned pending clinical response
- follow clinically
Chief Complaint
-: Other (nose abscess)
Subjective / Review of Systems
afebrile
persistent hypertension noted
leukocytosis resolved
cr stable
a1c 7.4
awaiting sensi
blood cultures no growth to date
crusting over the aspiration site - warm wet compresses
nowe less tender
Vital Signs / Physical Exam
Vital Signs
Vital Signs
Temp Pulse Resp BP Pulse Ox
97.8 F 60 16 171/91 97
09/25/23 08:25 09/25/23 08:35 09/25/23 08:25 09/25/23 08:35 09/25/23 08:25
Physical Exam
Constitutional: No Acute Distress
Head: Other (nose still red, peau dorange; less tender, there is crusting within the nostril at the aspiration site)
Cardiovascular: Regular Rate
Pulmonary: Symmetric and Non Labored
Gastrointestinal: Non Distended
Skin: Dry
Objective Data
Lab Data
Lab Results
09/25/23 07:03
09/25/23 07:03
Estimated Creat Clear 113 ml/min 09/25/23 07:03
Total Bilirubin 1.0 mg/dl (0.2-1.3) 09/24/23 08:03
AST 18 U/L (17-59) 09/24/23 08:03
ALT 14 U/L (0-50) 09/24/23 08:03
Alkaline Phosphatase 101 U/L (38-126) 09/24/23 08:03
Most recent labs reviewed.
Micro Results:
09/23/23 22:48 MRSA Screen - Final
Nose No Methicillin Resistant Staphylococcus aureus isolated.
09/24/23 15:09 Blood Culture - Pending
Blood/Venous
09/24/23 14:43 Blood Culture - Pending
Blood/Venous
[2023-09-25] MEDS: APRESOLINE 5 MG IV ×2 (11:54→23:17)
--- NOTE | 2023-09-25 11:55 | PTCARENOTE ---
Noted on re-check of pt's BP that he remains elevated at 190/90. Pt with slight headache, no dizziness. Administered PRN Hydralazine 5mg IV as per orders for SBP > 185. Made Dr. Mendez aware of above, adding an additional dose of Lisinopril 20mg
po, updated pt on plan, will monitor.
--- NOTE | 2023-09-25 12:33 | PN.CDI ---
CDI
- -
CDI:
Physician Documentation Request
Admit Date: 09/23/23 21:23
Dear Doctor Andrea,
Please review the following and provide your response in the progress notes.
Clinical Indicators:
- Systolic BP 170-200's
- Patient with pmh hypertension
- 09/23-09/25 IV Hydralazine 5mg given x 3
- 09/25 Lisinopril does doubled from 20mg to 40mg daily
Clarify which, if any of the following, is a more accurate diagnosis reflecting the type and acuity of the documented hypertension:
Essential primary hypertension
Hypertensive Urgency - B/P is severely elevated (systolic > or = to 180 or diastolic > or = to 110) but there is no associated organ damage. Symptoms may include: headache, shortness of breath, nosebleeds, severe anxiety. Treatment usually consists
of addition to or adjusting of oral medications and does not generally necessitate hospitalization.
Hypertensive Emergency - B/P is severely elevated (systolic > or = to 180 or diastolic > or = to 110) but can occur at lower levels especially in patients who did not previously have high B/P. There is usually associated organ damage. Symptoms may
include: memory loss, LOC, CVA, [place], angina, renal failure, pulmonary edema. Generally requires more aggressive treatment and a hospitalization.
Hypertensive Crisis - an acute elevation in B/P that can lead to organ damage. Broad term that is further differentiated to include urgency or emergency based on presence of organ damage.
Other (please specify)
Use of terms such as suspected, likely, concern for, or probable (associated with a specific diagnosis that is being evaluated, monitored, or treated as if it exists) are acceptable and can be coded in the inpatient setting, when documented at the
time of discharge.
Thank you,
Jin Sweet RN
CDI Specialist
Please use your independent medical judgment in providing your response.
--- NOTE | 2023-09-25 12:42 | CM ---
Patient seen, reports no new concerns at this time. CM will continue to follow for all discharge planning needs.
Plan; home no needs anticipated, watch for possible IV antibiotics needs.
[2023-09-25] MEDS: ZYVOX 600 MG PO ×2 (13:56→20:07)
--- NOTE | 2023-09-25 14:35 | WOUNDNOTE ---
[facility] RN NOTE: Reviewed chart, met with patient. Patient has left plantar diabetic wound. He follows with [employer] Dr. Guzman and has diabetic shoes at home. He said the plan is for skin graft of plantar wound in the coming weeks. The wound appears
pink and superficial, surrounded by callus. Reviewed importance of blood sugar management and wound healing. Patient states he aware and reports daily BS in 150 range. Most recent HgbA1c is 7.4. Wound was cleaned with normal saline and covered with
silicone border foam. Will follow as needed. Orders confirmed with hospitalist, RN updated. Will follow as needed.
--- NOTE | 2023-09-25 18:00 | PTCARENOTE ---
Pt's BP at 1530 176/83, pt asymptomatic. Pt does not meet administration parameters for PRN Hydralazine as dosing is for SBP > 185, or DBP > 95. Discussed with Dr. Mendez, adding Norvasc 5mg for am, no change for BP meds for now. BP 160/86 at
current time, will continue to monitor closely.
[2023-09-25] MEDS: LIPITOR 10 MG PO (18:01)
[2023-09-26] MEDS: VANCOCIN 300 MG IV (06:26)
[2023-09-26] MEDS: VANCOCIN 300 ML IV (06:26)
[2023-09-26 06:48] LABS: Blood Urea Nitrogen 26 mg/dl (9-20); Calcium 8.7 mg/dl (8.4-10.2); Carbon Dioxide 27 mmol/L (22-30); Chloride 105 mmol/L (98-107); Estimated Creatinine Clearance 113 ml/min; Glucose 203 mg/dl (70-99); Potassium 4.2 mmol/L (3.5-5.1); Sodium 140 mmol/L (135-145); eGFR > 60.00
[2023-09-26 06:53] LABS: Vancomycin Trough 14.5 ug/ml (5-20)
[2023-09-26 07:38] VITALS: BP 158/63
--- NOTE | 2023-09-26 09:00 | W.PN.ID1 ---
Date of Service
Date of Service: September 26, 2023
Today's Communication
- continue linezolid x 11 more days
- follow up with PCP
Assessment / Plan
Nasal Cellulitis with small abscess
Class III Obesity
DM2
- s/p aspiration of the small fluid collection - culture with S aureus awaiting sensi
- blood cultures x2 no growth to date
- a1c fair control - would like to see further improvement outpatient in this young man
- continue linezolid x 11 more days
- follow up with PCP
Chief Complaint
-: Other (nose abscess)
Subjective / Review of Systems
afebrile
bp stable
cr 1.1
vanc tr 14
blood cultures remain no growth
nose no longer with peau d'orange, no longer tender, less red
Vital Signs / Physical Exam
Vital Signs
Vital Signs
Temp Pulse Resp BP Pulse Ox
97.8 F 64 18 158/63 97
09/26/23 07:38 09/26/23 07:38 09/26/23 07:38 09/26/23 07:38 09/26/23 07:38
Physical Exam
Constitutional: No Acute Distress
Head: Other (nose no longer with peau d'orange, no longer tender, less red, no drainage)
Cardiovascular: Regular Rate
Pulmonary: Symmetric and Non Labored
Gastrointestinal: Non Distended
Skin: Dry; Negative Rash or Jaundice
Neurological: Awake
Objective Data
Lab Data
Lab Results
09/25/23 07:03
09/26/23 06:20
Estimated Creat Clear 113 ml/min 09/26/23 06:20
Total Bilirubin 1.0 mg/dl (0.2-1.3) 09/24/23 08:03
AST 18 U/L (17-59) 09/24/23 08:03
ALT 14 U/L (0-50) 09/24/23 08:03
Alkaline Phosphatase 101 U/L (38-126) 09/24/23 08:03
Most recent labs reviewed.
Micro Results:
09/24/23 15:09 Blood Culture - Preliminary
Blood/Venous No Growth in 24 hours- Final report to follow
09/24/23 14:43 Blood Culture - Preliminary
Blood/Venous No Growth in 24 hours- Final report to follow
09/23/23 22:48 MRSA Screen - Final
Nose No Methicillin Resistant Staphylococcus aureus isolated.
Care Review
Plan reviewed with: Physician (Dr Mendez)
--- NOTE | 2023-09-26 09:02 | PHA.VAN.FU ---
Vancomycin Assessment / Plan
- Assessment
Renal Function: Stable
WBC's are: Trending Down
In the past 24 hrs, patient has been: Afebrile
Concomitant Antimicrobials: linezolid
- Assessment - Trough Based Monitoring
Trough Value: 14.5
Level Comments: drawn ~12.5H after 4th total dose
Level relatively stable compared to previous level with possibly slight accumulation
Level drawn after 4th total dose of 1500mg but may not fully be at steady state as initial 2 doses served as a divided loading dose
Currently on Vanc 1500mg Q12H
- Follow Up
Vancomycin discontinued and patient to be discharged
Vancomycin Follow UP
- -
Patient Age: 53
Patient Sex: Male
Vancomycin Day #: 3
Indication: Skin And Soft Tissue
Requesting Provider: Dr. Martinez
Pertinent Antimicrobial Allergies:
NKDA
Height / Weight:
Height 5 ft 10 in
Actual Weight 142.201 kg
Pertinent Past Medical History: BMI ~45, DM III
- Vital Signs / Lab Results
Temp Pulse Resp BP Pulse Ox
97.8 F 64 18 158/63 97
09/26/23 07:38 09/26/23 07:38 09/26/23 07:38 09/26/23 07:38 09/26/23 07:38
Lab Results - Hematology
09/24/23 09/25/23
08:03 07:03
WBC 11.3 H 9.0
Lab Results - Chemistry
09/24/23 09/25/23 09/26/23
08:03 07:03 06:20
BUN 21 H 26 H 26 H
Creatinine 1.1 1.1 1.1
Estimated Creat Clear 113 113 113
Albumin 3.2 L
Microbiology Results
09/24/23 15:09 Blood Culture - Preliminary
Blood/Venous No Growth in 24 hours- Final report to follow
09/24/23 14:43 Blood Culture - Preliminary
Blood/Venous No Growth in 24 hours- Final report to follow
09/23/23 22:48 MRSA Screen - Final
Nose No Methicillin Resistant Staphylococcus aureus isolated.
Therapeutic Drug Monitoring
Vancomycin Trough 14.5 ug/ml (5-20) 09/26/23 06:20
Random Vancomycin 13.5 ug/ml 09/25/23 07:02
[2023-09-26] MEDS: NORVASC 5 MG PO (09:11)
[2023-09-26] MEDS: THERAGRAN 1 TABLET PO (09:12)
[2023-09-26] MEDS: ORETIC 25 MG PO (09:12)
[2023-09-26] MEDS: GLUCOPHAGE 500 MG PO (09:13)
[2023-09-26] MEDS: VISBIOME 2 CAP PO (09:14)
[2023-09-26] MEDS: ZESTRIL 40 MG PO (09:14)
[2023-09-26] MEDS: BACTROBAN 2% OINTMENT 1 APPLIC TOPICAL (09:16)
[2023-09-26] MEDS: ZYVOX 600 MG PO (09:16)
--- NOTE | 2023-09-26 09:38 | W.DS.TRANS ---
DC Summary - Route Driver Salesperson
-
Discharge Instructions:
Discharge Diagnosis/Procedures Nasal cellulitis with small abscess
Methicillin resistant Staph aureus infection
Type 2 diabetes mellitus
Hypertensive urgency
Diet Diabetic, Carb Controlled
Activity No restrictions
Additional Activity Apply moist heating plant to area for the next
week
Instructions:
Stand-Alone Forms:
Changes to Home Medications: Yes
Discharge Medications:
DC Medications w/original date entered in [employer]
mupirocin 2 % topical ointment 1 applic topical BID #15 grams 09/21/23
atorvastatin 10 mg tablet 10 mg PO HS High Cholesterol 09/23/23
dulaglutide 1.5 mg/0.5 mL subcutaneous pen injector (Trulicity) 1.5 mg SC WILSON Diabetes 09/23/23
lisinopril 20 mg-hydrochlorothiazide 25 mg tablet 1 tab PO DAILY Blood Pressure 09/23/23
metformin 500 mg tablet 500 mg PO BID@0800,1700 Diabetes 09/23/23
multivitamin 1 tab PO DAILY Supplement 09/23/23
omega 1-kbg-mfv-fish oil 1,000 mg (120 mg-180 mg) capsule (Fish Oil) 1 cap PO DAILY Supplement 09/23/23
tadalafil 10 mg tablet 10 mg PO DAILY PRN ed 09/23/23
amlodipine 5 mg tablet 5 mg PO DAILY #0 tabs 09/26/23
linezolid 600 mg tablet 600 mg PO BID #22 tabs 09/26/23
Home Medication Changes
linezolid 600 mg tablet 600 mg PO BID #22 tabs 09/26/23
Pending Results: No
Total time spent discharging patient (in min): 45
--- NOTE | 2023-09-26 10:38 | W.DCSUMMARY ---
Discharge Summary
Discharge Data
Date of Admission: 09/23/23
Date of Discharge: 09/26/23
-
Pending Results: No
Hospital Course
This is a 53-year-old male with known history of hypertension and diabetes mellitus who presented with a swollen and very tender left nares and nasal prominence with erythema he was seen and evaluated in the emergency room and attempted aspiration
of a small amount of fluid that was purulent and returned and sent for culture he was subsequently admitted to the medical service and placed on wide spectrum antibiotic coverage. He had actually failed an outpatient course of doxycycline as
empiric management included initiation of clindamycin however ID was consulted and placed the patient on combination of vancomycin and high-dose cefazolin stopping the clindamycin with the addition of probiotics the patient was also instructed on a
moist heating pad to be applied to the area while awaiting culture results which turned out to be positive for methicillin-resistant Staph aureus he has subsequently had significant improvement with diminishing erythema tenderness and no further
drainage and is now felt to be amenable to outpatient therapy and he will be placed on linezolid 600 mg twice a day for the next 11 days. He is to continue on [id number] probiotic. And continuation of moist heating pad applied to the area
several times a day. Blood cultures have remained negative for no growth to date/patient had several episodes of hypertensive urgency throughout the course of the admission and we came to find the patient did not list his amlodipine at the time of
presentation that he been taken on and we added that the day prior to his discharge and this is returned his BP readings to his baseline. He will follow-up with his primary care provider and we stressed the importance of diabetic management and
avoiding hypoglycemia
Discharge Plan
-
Patient Disposition: Home (Routine Discharge)
Discharge Diagnosis/Procedures: Nasal cellulitis with small abscess
Methicillin resistant Staph aureus infection
Type 2 diabetes mellitus
Hypertensive urgency
Diet: Diabetic, Carb Controlled
Activity: No restrictions
Additional Activity: Apply moist heating plant to area for the next week
Activity Restrictions/Additional Instructions:
Wound Care Instructions Left Foot Wound- Clean with normal saline or soap and water. Apply silicone border foam. Change Q 48 hours and as needed if loose or soiled. Follow up with Dr. Guzman as scheduled.
Take [id number] probiotic while on antibiotic therapy and for 1 week after finishing
Referrals:
Esther Velazquez CRNP [Family Provider] - in less than 1 week
Prescriptions:
New
amlodipine 5 mg Tablet
5 mg PO DAILY Qty: 0 0RF
linezolid 600 mg Tablet
600 mg PO BID Qty: 22 0RF
Continued
mupirocin 2 % ointment
1 applic topical BID Qty: 15 0RF
Rx Instructions:
apply to nostrils twice daily
metformin 500 mg tablet
500 mg PO BID@0800,1700
atorvastatin 10 mg tablet
10 mg PO HS
lisinopril-hydrochlorothiazide 20-25 mg tablet
1 tab PO DAILY
tadalafil 10 mg tablet
10 mg PO DAILY PRN (Reason: ed)
Trulicity 1.5 mg/0.5 mL pen injector
1.5 mg SC WILSON
multivitamin Tablet
1 tab PO DAILY
omega 0-xsm-doj-fish oil [Fish Oil] 1,000 mg (120 mg-180 mg) Capsule
1 cap PO DAILY
Discontinued
doxycycline hyclate 100 mg capsule
100 mg PO BID
Discharge Orders:
Discharge Patient (As Directed); Ordered 09/26/23
Ordered By: Patricio Mendez
[2023-09-26 11:38] VITALS: BP 160/89
--- NOTE | 2023-09-26 12:47 | CM ---
Chart reviewed, patient for discharge today, home no needs. CM will continue to follow for discharge planning needs.
Plan; home no needs.
== END 2023-09-26 12:11 | disposition home or self-care (01) | DRG 155 ==
LOC: 4 EAST ACU 21:23
PROVIDERS: ADMITTING PHYSICIAN Hospitalist; ATTENDING PHYSICIAN Internal Medicine; CONSULT PHYSICIAN Student in an Organized Health Care Education/Training Program; EMERGENCY PHYSICIAN Emergency Medicine; FAMILY PHYSICIAN Nurse Practitioner Family
DX: J34.0 Abscess, furuncle and carbuncle of nose (principal); Z68.42 Body mass index [BMI] 45.0-49.9, adult; J32.9 Chronic sinusitis, unspecified; I10 Essential (primary) hypertension; I16.0 Hypertensive urgency; E11.9 Type 2 diabetes mellitus without complications; E66.9 Obesity, unspecified; Z79.84 Long term (current) use of oral hypoglycemic drugs; Z98.84 Bariatric surgery status
CPT/HCPCS: 80048; 80053; 80202; 83036; 85025; 85027; 87040; 87070; 99284

== ENCOUNTER → 2023-10-18 07:30 | Outpatient (REF) | payer OTHER, SELFPAY ==
[2023-10-18 08:56] LABS: % Basophils 0.4 % (0-2); % Eosinophils 2.7 % (0-6); % Immature Granulocytes 0.3 % (0-0.5); % Lymphocytes 38.4 % (20.5-51.1); % Neutrophils 50.2 % (42.2-75.2); Absolute Eosinophils 0.2 10^3/uL (0-0.7); Absolute Lymphocytes 2.7 10^3/uL (1.2-3.4); Absolute Monocytes 0.6 10^3/uL (0.1-0.6); Absolute Neutrophils 3.6 10^3/uL (1.4-6.5); Hematocrit 35.3 % (39.0-52.0); Hemoglobin 12.4 g/dL (13.0-18.0); Mean Corp Hgb Conc. 35.1 g/dL (33.0-37.0); Mean Corpuscular Hgb 29.5 pg (27.0-31.0); Mean Corpuscular Volume 83.8 fL (80.0-94.0); Mean Platelet Volume 10.8 fL (7.4-10.4); Nucleated Red Blood Cells % 0 % (-); Platelet Count 228 10^3/uL (130-400); Red Blood Cell Count 4.21 10^6/uL (4.70-6.10); Red Cell Dist. Width 14.6 % (11.5-14.5); White Blood Cell Count 7.1 10^3/uL (4.8-10.8)
[2023-10-18 09:07] LABS: INR 1.01; PT 13.1 Sec (11.4-14.6)
[2023-10-18 09:08] LABS: APTT 35.4 Sec (23.4-35.0)
[2023-10-18 09:40] LABS: ALT (SGPT) 22 U/L (0-50); AST (SGOT) 21 U/L (17-59); Albumin 3.8 g/dl (3.5-5.0); Alkaline Phosphatase 80 U/L (38-126); Blood Urea Nitrogen 30 mg/dl (9-20); Calcium 9.3 mg/dl (8.4-10.2); Carbon Dioxide 28 mmol/L (22-30); Chloride 102 mmol/L (98-107); Glucose 181 mg/dl (70-99); Potassium 4.2 mmol/L (3.5-5.1); Sodium 138 mmol/L (135-145); Total Protein 6.9 g/dl (6.3-8.2); eGFR > 60.00
== END ==
LOC: RCS 07:30
PROVIDERS: ATTENDING PHYSICIAN Podiatrist Foot & Ankle Surgery; FAMILY PHYSICIAN Nurse Practitioner Family
DX: L97.522 Non-pressure chronic ulcer of other part of left foot with fat layer exposed (principal); M25.775 Osteophyte, left foot
CPT/HCPCS: 36415; 71046; 80053; 85025; 85610; 85730; 93005

== ENCOUNTER 2023-11-02 17:32 | Emergency (ER) | payer OTHER, SELFPAY ==
[2023-11-02 17:36] VITALS: BP 163/90
--- NOTE | 2023-11-02 18:58 | ED.GENMED ---
History of Present Illness
General
Chief Complaint: Skin Problem
Source: patient and spouse
Exam Limitations: none
Time Seen by Provider: 11/02/23 17:56
Nursing documentation reviewed up to this point in time: agreed with
Travel History
Have you had any contact with someone who has COVID-19?: No
Do you have any symptoms of coronavirus? Fever > 100 degrees, chills, cough, shortness of breath, sore throat, loss of taste or smell, muscle aches, or headache?: No
History of Present Illness
History of Present Illness:
53-year-old male past medical history of NIDDM presenting to the emergency department today with concerns of an abscess to the left side of his forehead noticed this a few days after popping a pimple. Denies any fevers or systemic symptoms.
Past History
Past History
ED Past Medical History: HTN, Hypercholesterolemia and NIDDM
ED Past Surgical History: Other (gastric sleeve 2019, no longer on diabetic medications.)
Social History
Tobacco: Non-smoker
Alcohol: Occasional
Drug: None
Personal:
Living: with family
Family History
Family History: Diabetes
Review of Systems
Review of Systems
Allergies reviewed?: Yes
All Other Systems: ROS reviewed and negative except as documented in HPI and ROS
Phy Exam
Physical Exam
Physical Exam:
GENERAL: Alert , in no apparent distress
EYE: pupils equal and reactive
NECK: Supple, no significant adenopathy.
ENT: Left lateral forehead 2 cm in diameter area of redness swelling induration without significant fluctuance small break in the skin centrally. o/p clr, mmm.
CARDIAC: Regular rate and rhythm .
LUNGS: Clear breath sounds bilaterally, no acute respiratory distress, no wheezes/rales/rhonchi
ABDOMEN: Soft, without focal tenderness, no r/g, no cvat
NEUROLOGICAL: Alert and oriented, no focal neuro deficits
SKIN: Warm and dry, skin intact.
MUSCULOSKELETAL: No edema, well perfused.
PSYCH: Normal and appropriate interaction.
Course
Orders/Labs/Results
Orders:
Orders
11/02/23 18:57
Sulfamethox./Trimethoprim Ds [Bactrim Ds 800 mg/160 mg] 2 tablet PO NOW STA
Vital Signs
Initial and Last Documented VS:
Initial Vital Signs
Temp Pulse Resp BP Pulse Ox
98.3 F 71 16 163/90 98
11/02/23 17:36 11/02/23 17:36 11/02/23 17:36 11/02/23 17:36 11/02/23 17:36
Last Documented Vital Signs
Temp Pulse Resp BP Pulse Ox
98.3 F 71 16 163/90 98
11/02/23 17:36 11/02/23 17:36 11/02/23 17:36 11/02/23 17:36 11/02/23 17:36
Procedures
Incision/Drainage/Joint Aspiration
Left Forehead:
Anethesia: 1% Lidocaine with Epi
Preparation: cleaned with alcohol wipe
Type of procedure: incise and drain
Nature of site: abscess
Description of abscess: less than 3cm
Loculations broken up: Yes
How much fluid was obtained?: scant amount
Fluid description: purulent
Treatment: left open for drainage
MDM/Problems Addressed
MDM/Problems Addressed:
53-year-old male presenting to the emergency department today with concerns of what appears to be a small abscess to the left lateral forehead this occurred after popping a pimple a few days ago. Area is red warm tender to palpation small stab
incision was performed with a small amount of purulent drainage otherwise covered and started on Bactrim to reduce risk of recurrence otherwise stable for discharge return precautions given.
*Critical Care Note
Total Time (30-74mins, 75-104mins- exclusive of procedures): Not Applicable
ED Attending Note
-
Portions of this chart may have been created with voice recognition software.� Occasional wrong word or��sound alike� substitutions may have occurred due to the inherent limitations of voice recognition software.
Discharge Plan
Departure
Patient Disposition: Home (Routine Discharge)
Date of Disposition: 11/02/23
Time of Disposition: 19:00
Patient with high blood pressure during this ER visit?: No
Condition: Good
Covid-19: Not Applicable
Discharge Problem:
Abscess of face
Instructions: Skin Abscess
Prescriptions:
New
sulfamethoxazole-trimethoprim [Bactrim DS] 800-160 mg tablet
2 tab PO BID 3 Days Qty: 12 0RF
No Action
mupirocin 2 % ointment
1 applic topical BID Qty: 15 0RF
Rx Instructions:
apply to nostrils twice daily
metformin 500 mg tablet
500 mg PO BID@0800,1700
atorvastatin 10 mg tablet
10 mg PO HS
lisinopril-hydrochlorothiazide 20-25 mg tablet
1 tab PO DAILY
tadalafil 10 mg tablet
10 mg PO DAILY PRN (Reason: ed)
Trulicity 1.5 mg/0.5 mL pen injector
1.5 mg SC WILSON
multivitamin Tablet
1 tab PO DAILY
omega 8-axw-sue-fish oil [Fish Oil] 1,000 mg (120 mg-180 mg) Capsule
1 cap PO DAILY
amlodipine 5 mg Tablet
5 mg PO DAILY Qty: 0 0RF
linezolid 600 mg Tablet
600 mg PO BID Qty: 22 0RF
Referrals:
Esther Velazquez CRNP [Family Provider] -
Activity Restrictions/Additional Instructions:
You came to the emergency department today with concerns of an abscess to the left forehead. Please take Bactrim 2 pills twice daily for the next 3 days to reduce risk of recurrence. Please also use mupirocin to your nose twice daily over the next
5 days as well as chlorhexidine body wash once daily for the next week. Return to the emergency department for any worsening, new or concerning symptoms.
Interventions
Interventions:
*General Assessment Last Done: 11/02/23 18:40
*Neglect/Abuse Screening Last Done: 11/02/23 18:40
ED- Fall Risk Assessment Last Done: 11/02/23 18:40
*ED COVID-19 Vaccine History Last Done: 11/02/23 17:36
ED-Skin Assessment Last Done: 11/02/23 18:40
[2023-11-02] MEDS: BACTRIM DS 800 MG/160 MG 2 TABLET PO (19:05)
== END 2023-11-02 19:12 | disposition home or self-care (01) ==
LOC: EMR 17:32
PROVIDERS: EMERGENCY PHYSICIAN Emergency Medicine; FAMILY PHYSICIAN Nurse Practitioner Family
DX: L02.01 Cutaneous abscess of face (principal); E11.9 Type 2 diabetes mellitus without complications; E78.00 Pure hypercholesterolemia, unspecified; I10 Essential (primary) hypertension; Z83.3 Family history of diabetes mellitus; Z98.84 Bariatric surgery status
CPT/HCPCS: 99282; 10060

== ENCOUNTER → 2023-11-26 13:27 | Outpatient (REF) | payer OTHER, SELFPAY | LOC: HWRAD 13:27 | PROVIDERS: ATTENDING PHYSICIAN Podiatrist Foot & Ankle Surgery; FAMILY PHYSICIAN Nurse Practitioner Family | DX: M79.605 Pain in left leg (principal); R60.0 Localized edema | CPT/HCPCS: 93971 ==

== ENCOUNTER 2023-11-30 21:43 | Emergency (ER) | payer OTHER, SELFPAY ==
[2023-11-30 21:44] VITALS: BP 158/68
--- NOTE | 2023-12-01 00:13 | ED.GENMED ---
History of Present Illness
General
Chief Complaint: Skin Problem
Source: patient and spouse
Time Seen by Provider: 11/30/23 23:33
Travel History
Have you had any contact with someone who has COVID-19?: No
Do you have any symptoms of coronavirus? Fever > 100 degrees, chills, cough, shortness of breath, sore throat, loss of taste or smell, muscle aches, or headache?: No
History of Present Illness
History of Present Illness:
This patient is a 53-year-old male who had a toe straightening procedure of his left foot on November 04. Since that time, he has noted swelling of his ankle leg which she believes is related to the dressing being too tight initially as well as him
going back to work and being on his feet a lot. He did have an ultrasound performed 5 days ago that was negative for a DVT or other abnormalities. He got concerned yesterday because he noticed that the 'top of my toe' appeared erythematous. He
denies fever, chills, nausea, vomiting, numbness. He saw his foot doctor on Friday and was noted to have slight clear drainage at that time which she was reassured is expected and unremarkable. This drainage has not increased or become purulent or
foul-smelling. He denies any other complaints. Patient was put on Bactrim about a week ago for which he is compliant.
Past History
Past History
ED Past Medical History: HTN, Hypercholesterolemia and NIDDM
ED Past Surgical History: Orthopedic and Other (gastric sleeve 2019)
Social History
Tobacco: Non-smoker
Alcohol: Occasional
Drug: None
Personal:
Living: with family
Family History
Family History: Diabetes
Phy Exam
Physical Exam
Physical Exam:
GENERAL: Alert , in no apparent distress
EYE: pupils equal and reactive
NECK: Supple, no significant adenopathy.
ENT: o/p clr, mmm.
CARDIAC: Regular rate and rhythm .
LUNGS: Clear breath sounds bilaterally, no acute respiratory distress, no wheezes/rales/rhonchi
ABDOMEN: Soft, without focal tenderness, no r/g, no cvat
NEUROLOGICAL: Alert and oriented, no focal neuro deficits
SKIN: Warm and dry, L great toe with area of healing wound plnt aspect, no purulence/active drainage/foul smell. There is an area of sl warmth and erythema dorsal aspect L great toe without fluctuance, crepitus or other abnl. Very faint erythema
at distal tib/fib area.
MUSCULOSKELETAL: L mild asx LE edema, well perfused.
PSYCH: Normal and appropriate interaction.
Course
Orders/Labs/Results
Orders:
Orders
12/01/23 00:12
Amoxicillin 875 mg/Clav 125 mg [Augmentin 875 mg/125 mg] 1 tablet PO NOW STA
Vital Signs
Initial and Last Documented VS:
Initial Vital Signs
Temp Pulse Resp BP Pulse Ox
98 F 74 18 158/68 100
11/30/23 21:44 11/30/23 21:44 11/30/23 21:44 11/30/23 21:44 11/30/23 21:44
Last Documented Vital Signs
Temp Pulse Resp BP Pulse Ox
98 F 74 18 158/68 100
11/30/23 21:44 11/30/23 21:44 11/30/23 21:44 11/30/23 21:44 11/30/23 21:44
*Critical Care Note
Total Time (30-74mins, 75-104mins- exclusive of procedures): Not Applicable
Update Note
Update Note:
Patient presents to the Emergency Department with ___L foot redness
Number and Complexity of Problems Addressed at the Encounter
� Chronic conditions affecting care:
� Acute Exacerbation and/or Progression of Chronic Illness:
� Differential Diagnosis includes: But not limited to cellulitis, abscess, osteomyelitis, allergic reaction, etc.
Amount and/or Complexity of Data to be Reviewed and Analyzed
� I performed an independent evaluation of and my interpretation is:
EKG:
CT:
Xrays:
Laboratory Studies:
Other:
� Review of other/old records reveals: Patient was in the hospital September of this year with an abscess of his nose, positive for MRSA
� Clinical information was obtained by an independent historian: Spouse who is at bedside
� Prescriptions/Medications Considered but not given:
� Further testing considered but not performed:
Risk of Complications and/or Morbidity or Mortality of Patient Management
� Social determinants of health affecting care:
� Discussion with other providers (PCP, Hospitalists, Consultants, etc):
� Escalation of care including admission/observation vs risk of discharge considered: Patient extremely nontoxic and well-appearing highly doubt sepsis/bacteremia. Patient has only had symptoms for approximately 24 to 48 hours.
He is due to see his doctor in the morning. D/w him option for admission/iv abx vs begin po abx here (in addition to bactrim) to expand coverage, with f/u in AM for reassessment. He would prefer to be discharged. Understands import of f/u, higher
risk of progression given diabetes, reasons to rted, etc.
ED Attending Note
-
Portions of this chart may have been created with voice recognition software.� Occasional wrong word or��sound alike� substitutions may have occurred due to the inherent limitations of voice recognition software.
Discharge Plan
Departure
Patient Disposition: Home (Routine Discharge)
Date of Disposition: 12/01/23
Time of Disposition: 00:13
Patient with high blood pressure during this ER visit?: Yes
Condition: Good
Discharge Problem:
Cellulitis
Instructions: Cellulitis (Skin Infection), Adult (DC), BLOOD PRESSURE
Prescriptions:
New
amoxicillin-pot clavulanate 875-125 mg tablet
1 tab PO BID Qty: 14 0RF
No Action
mupirocin 2 % ointment
1 applic topical BID Qty: 15 0RF
Rx Instructions:
apply to nostrils twice daily
metformin 500 mg tablet
500 mg PO BID@0800,1700
atorvastatin 10 mg tablet
10 mg PO HS
lisinopril-hydrochlorothiazide 20-25 mg tablet
1 tab PO DAILY
tadalafil 10 mg tablet
10 mg PO DAILY PRN (Reason: ed)
Trulicity 1.5 mg/0.5 mL pen injector
1.5 mg SC WILSON
multivitamin Tablet
1 tab PO DAILY
omega 4-sdm-pni-fish oil [Fish Oil] 1,000 mg (120 mg-180 mg) Capsule
1 cap PO DAILY
amlodipine 5 mg Tablet
5 mg PO DAILY Qty: 0 0RF
linezolid 600 mg Tablet
600 mg PO BID Qty: 22 0RF
sulfamethoxazole-trimethoprim [Bactrim DS] 800-160 mg tablet
2 tab PO BID 3 Days Qty: 12 0RF
Referrals:
UNKNOWN - PT NOT,INTERVIEWE [Family Provider] -
Activity Restrictions/Additional Instructions:
PLEASE SEE YOUR FOOT DOCTOR TOMORROW SCHEDULED. CONTINUE BACTRIM, AND ADD THIS NEW ANTIBIOTIC PRESCRIBED. IF YOU DEVELOP FEVER, CHILLS, INCREASING/NEW SWELLING, INCREASING/NEW REDNESS, FOUL SMELLING DRAINAGE, NUMBNESS, WEAKNESS, OR OTHER
WORRISOME SIGNS, GO TO THE ER IMMEDIATELY!
Interventions
Interventions:
*Risk Screen - Suicide Last Done: 11/30/23 21:44
*Neglect/Abuse Screening Last Done: 11/30/23 21:44
ED-Skin Assessment Last Done: 12/01/23 00:02
Discharge Date and Time
Print Language: LATVIAN
[2023-12-01] MEDS: AUGMENTIN 875 MG/125 MG 1 TABLET PO (00:25)
[2023-12-01 00:26] VITALS: BP 156/71
== END 2023-12-01 00:38 | disposition home or self-care (01) ==
LOC: EMR 21:43
PROVIDERS: EMERGENCY PHYSICIAN Emergency Medicine; FAMILY PHYSICIAN Nurse Practitioner Family
DX: L03.90 Cellulitis, unspecified (principal); I10 Essential (primary) hypertension; E78.00 Pure hypercholesterolemia, unspecified; E11.9 Type 2 diabetes mellitus without complications; Z83.3 Family history of diabetes mellitus; Z98.84 Bariatric surgery status
CPT/HCPCS: 99282

== ENCOUNTER → 2023-12-14 06:43 | Outpatient (REF) | payer OTHER, SELFPAY | LOC: MRI 3T 06:43 | PROVIDERS: ATTENDING PHYSICIAN Podiatrist Foot & Ankle Surgery; FAMILY PHYSICIAN Nurse Practitioner Family | DX: M71.072 Abscess of bursa, left ankle and foot (principal); M86.172 Other acute osteomyelitis, left ankle and foot | CPT/HCPCS: 73718 ==

== ENCOUNTER 2024-01-31 13:20 | Emergency (ER) | payer OTHER, SELFPAY ==
[2024-01-31 13:23] VITALS: BP 153/74
--- NOTE | 2024-01-31 14:26 | ED.GENMED ---
History of Present Illness
General
Chief Complaint: Skin Problem
Source: patient and family
Exam Limitations: none
Time Seen by Provider: 01/31/24 13:53
Travel History
Have you had any contact with someone who has COVID-19?: No
Do you have any symptoms of coronavirus? Fever > 100 degrees, chills, cough, shortness of breath, sore throat, loss of taste or smell, muscle aches, or headache?: No
History of Present Illness
History of Present Illness:
53-year-old male who presents with rash to the upper and right lateral lower lip. Patient states he typically goes to a burns for larson trimming and usually has a full larson. Recently the burns scaled back the hair on his upper lip and just
below his lower lip. He then went home and used a razor shaved against the grain. Patient does have a history of MRSA and is currently on linezolid as an outpatient. He denies fevers.
Past History
Past History
ED Past Medical History: HTN, Hypercholesterolemia, NIDDM and Other (MRSA)
ED Past Surgical History: Orthopedic and Other (gastric sleeve 2019)
Social History
Tobacco: Non-smoker
Alcohol: Occasional
Drug: None
Personal:
Living: with family
Family History
Family History: Diabetes
Phy Exam
Physical Exam
Physical Exam:
CONSTITUTIONAL Vital signs reviewed, Patient alert and oriented to person, place and time. Well-appearing
HEAD atraumatic, normocephalic.
EYES eyelids normal to inspection, Extraocular muscles intact, Conjunctiva normal, Sclera normal.
ENT folliculitis noted to the midline upper lip to the left. There is some induration in this area. No vesicles but small pustule noted. Lower lip on the right lateral aspect does show red-based folliculitis. No obvious vesicles.
NECK normal range of motion, Trachea midline, no jugular venous distention.
RESP no respiratory distress
BACK No obvious deformities
UPPER EXTREMITY Gross Range of motion normal, gross motor strength normal
LOWER EXTREMITY Gross range of motion normal, Gross motor strength normal
NEURO Speech normal, No focal motor deficits include, Jesus coma scale 15, Memory normal, Cranial Nerves intact to screening exam.
SKIN Skin warm, dry, and normal in color.
PSYCHIATRIC Patient oriented to person place and time, Normal affect.
Course
Vital Signs
Initial and Last Documented VS:
Initial Vital Signs
Temp Pulse Resp BP Pulse Ox
98.2 F 83 16 153/74 97
01/31/24 13:23 01/31/24 13:23 01/31/24 13:23 01/31/24 13:23 01/31/24 13:23
Last Documented Vital Signs
Temp Pulse Resp BP Pulse Ox
98.2 F 83 16 153/74 97
01/31/24 13:23 01/31/24 13:23 01/31/24 13:23 01/31/24 13:23 01/31/24 13:23
MDM/Problems Addressed
MDM/Problems Addressed:
Folliculitis
Chronic conditions affecting care:
MRSA
*Pulse Oximetry
Patient hypoxic: no
*Critical Care Note
Total Time (30-74mins, 75-104mins- exclusive of procedures): Not Applicable
Data Reviewed
Review of Other/Old Records Reveals: Discharge Summary (Discharge summary reviewed from September 2023)
Source: patient
Prescriptions/Medications Considered But Not Given:
Considered Bactrim but the patient is already on linezolid
Patient Management
Escalation/DeEscalation of care consider admission/obs:
Suspect folliculitis. Recommended warm compresses, continue antibiotics and add mupirocin
ED Attending Note
-
Portions of this chart may have been created with voice recognition software.� Occasional wrong word or��sound alike� substitutions may have occurred due to the inherent limitations of voice recognition software.
Discharge Plan
Departure
Patient Disposition: Home (Routine Discharge)
Date of Disposition: 01/31/24
Time of Disposition: 14:31
Patient with high blood pressure during this ER visit?: Yes
Discharge Problem:
Folliculitis
Instructions: Bacterial folliculitis, BLOOD PRESSURE
Prescriptions:
New
mupirocin 2 % ointment
1 applic topical TID 7 Days Qty: 22 0RF
No Action
mupirocin 2 % ointment
1 applic topical BID Qty: 15 0RF
Rx Instructions:
apply to nostrils twice daily
metformin 500 mg tablet
500 mg PO BID@0800,1700
atorvastatin 10 mg tablet
10 mg PO HS
lisinopril-hydrochlorothiazide 20-25 mg tablet
1 tab PO DAILY
tadalafil 10 mg tablet
10 mg PO DAILY PRN (Reason: ed)
Trulicity 1.5 mg/0.5 mL pen injector
1.5 mg SC WILSON
multivitamin Tablet
1 tab PO DAILY
omega 4-idc-vxd-fish oil [Fish Oil] 1,000 mg (120 mg-180 mg) Capsule
1 cap PO DAILY
amlodipine 5 mg Tablet
5 mg PO DAILY Qty: 0 0RF
linezolid 600 mg Tablet
600 mg PO BID Qty: 22 0RF
sulfamethoxazole-trimethoprim [Bactrim DS] 800-160 mg tablet
2 tab PO BID 3 Days Qty: 12 0RF
amoxicillin-pot clavulanate 875-125 mg tablet
1 tab PO BID Qty: 14 0RF
Activity Restrictions/Additional Instructions:
Please apply warm compresses. Use antibiotic ointment 3 times a day for 7 days. Return immediately for facial swelling, redness, fevers or any other concerns. Do not shave this area. Please see your doctor in the next 3 to 5 days for follow-up
and reevaluation.
Interventions
Interventions:
*ED COVID-19 Vaccine History Last Done: 01/31/24 13:23
ED-Skin Assessment Last Done: 01/31/24 13:54
Discharge Date and Time
Print Language: GHANAIAN
== END 2024-01-31 14:45 | disposition home or self-care (01) ==
LOC: EMR 13:20
PROVIDERS: EMERGENCY PHYSICIAN Emergency Medicine; FAMILY PHYSICIAN Nurse Practitioner Family
DX: L73.9 Follicular disorder, unspecified (principal); I10 Essential (primary) hypertension; E78.00 Pure hypercholesterolemia, unspecified; E11.9 Type 2 diabetes mellitus without complications; Z83.3 Family history of diabetes mellitus; Z86.14 Personal history of Methicillin resistant Staphylococcus aureus infection; Z98.84 Bariatric surgery status
CPT/HCPCS: 99282

== ENCOUNTER → 2024-06-10 06:19 | Day surgery (SDC) | payer OTHER, SELFPAY ==
[2024-06-10 07:18] LABS: Glucose - Point of Care 132 mg/dl (70-99)
== END ==
LOC: GI 06:19
PROVIDERS: ATTENDING PHYSICIAN Internal Medicine Gastroenterology
DX: Z12.11 Encounter for screening for malignant neoplasm of colon (principal); D12.3 Benign neoplasm of transverse colon; K63.5 Polyp of colon; K57.30 Diverticulosis of large intestine without perforation or abscess without bleeding; K62.1 Rectal polyp; K64.0 First degree hemorrhoids
CPT/HCPCS: 45385; 45380; 88305; 82962

== ENCOUNTER 2024-12-09 19:36 | Emergency (ER) | payer OTHER, SELFPAY ==
[2024-12-09 19:44] VITALS: BP 136/79
--- NOTE | 2024-12-09 23:07 | ED.GENMED ---
History of Present Illness
General
Chief Complaint: Skin Surface Trauma
Source: patient and spouse
Exam Limitations: none
Time Seen by Provider: 12/09/24 22:27
History of Present Illness
History of Present Illness:
54-year-old male who presents after he was trying to cut a piece of metal that was on the ground. It then slid back and hit him in the head. states that he was bleeding so she put a dressing on it. Patient is not sure when his last tetanus
shot was. Was not knocked unconscious. No headaches. Here to take care of his wound
Past History
Past History
ED Past Medical History: HTN, Hypercholesterolemia, NIDDM and Other (MRSA)
ED Past Surgical History: Orthopedic and Other (gastric sleeve 2019)
Social History
Tobacco: Non-smoker
Alcohol: Occasional
Drug: None
Personal:
Living: with family
Family History
Family History: Diabetes
Phy Exam
Physical Exam
Physical Exam:
CONSTITUTIONAL Vital signs reviewed, Patient alert and oriented to person, place and time. Well-appearing
HEAD less than 1 cm semicircular wound to the right forehead with minor swelling. Just distal to that there is an abrasion with some loss of skin that is very small (less than 0.5 cm).
EYES eyelids normal to inspection, Extraocular muscles intact, Conjunctiva normal, Sclera normal.
NECK normal range of motion, Trachea midline, no jugular venous distention.
RESP no respiratory distress
BACK No obvious deformities
UPPER EXTREMITY Gross Range of motion normal, gross motor strength normal
LOWER EXTREMITY Gross range of motion normal, Gross motor strength normal
NEURO Speech normal, No focal motor deficits include, Jesus coma scale 15, Memory normal, Cranial Nerves intact to screening exam.
SKIN Skin warm, dry, and normal in color.
PSYCHIATRIC Patient oriented to person place and time, Normal affect.
Course
Orders/Labs/Results
Orders:
Orders
12/09/24 23:06
Tetanus/Diphth/Acelpertussis [Adacel] 0.5 ml IM .ONCE ONE
Vital Signs
Initial and Last Documented VS:
Initial Vital Signs
Temp Pulse Resp BP Pulse Ox
98.1 F 73 15 136/79 98
12/09/24 19:44 12/09/24 19:44 12/09/24 19:44 12/09/24 19:44 12/09/24 19:44
Last Documented Vital Signs
Temp Pulse Resp BP Pulse Ox
98.1 F 73 15 136/79 98
12/09/24 19:44 12/09/24 19:44 12/09/24 19:44 12/09/24 19:44 12/09/24 19:44
Procedures
Laceration Closure
Right Forehead:
Status of Wound: clean
Size of Wound in cm: 0.5
Description of Wound Edges: flap-well vascularized
Preparation: cleaned with saline
Revision/Debridement: routine- no revision
Wound exploration: explored to base- no FB
Type of Closure: Dermabond-skin glue
MDM/Problems Addressed
MDM/Problems Addressed:
Facial laceration, head injury
*Pulse Oximetry
Patient hypoxic: no
*Critical Care Note
Total Time (30-74mins, 75-104mins- exclusive of procedures): Not Applicable
Data Reviewed
Source: patient and spouse
Further Testing Considered But Not Given:
Consider head CT but no LOC. Otherwise no symptoms
Patient Management
Escalation/DeEscalation of care consider admission/obs:
Laceration repaired otherwise appears well. Recommended ice and outpatient follow-up. Return warnings were provided
ED Attending Note
-
Portions of this chart may have been created with voice recognition software.� Occasional wrong word or��sound alike� substitutions may have occurred due to the inherent limitations of voice recognition software.
Discharge Plan
Departure
Patient Disposition: Home (Routine Discharge)
Date of Disposition: 12/09/24
Time of Disposition: 23:14
Patient with high blood pressure during this ER visit?: No
Discharge Problem:
Facial laceration
Instructions: Laceration Repair With Glue (DC)
Prescriptions:
No Action
mupirocin 2 % ointment
1 applic topical BID Qty: 15 0RF
Rx Instructions:
apply to nostrils twice daily
metformin 500 mg tablet
500 mg PO BID@0800,1700
atorvastatin 10 mg tablet
10 mg PO HS
lisinopril-hydrochlorothiazide 20-25 mg tablet
1 tab PO DAILY
tadalafil 10 mg tablet
10 mg PO DAILY PRN (Reason: ed)
Trulicity 1.5 mg/0.5 mL pen injector
1.5 mg SC WILSON
multivitamin Tablet
1 tab PO DAILY
omega 7-egi-rtm-fish oil [Fish Oil] 1,000 mg (120 mg-180 mg) Capsule
1 cap PO DAILY
amlodipine 5 mg Tablet
5 mg PO DAILY Qty: 0 0RF
linezolid 600 mg Tablet
600 mg PO BID Qty: 22 0RF
sulfamethoxazole-trimethoprim [Bactrim DS] 800-160 mg tablet
2 tab PO BID 3 Days Qty: 12 0RF
amoxicillin-pot clavulanate 875-125 mg tablet
1 tab PO BID Qty: 14 0RF
mupirocin 2 % ointment
1 applic topical TID 7 Days Qty: 22 0RF
Referrals:
ERI SHARMA DO [Primary Care Provider] -
Esther Velazquez CRNP [Family Provider] -
Activity Restrictions/Additional Instructions:
Please ice injuries. Return immediately for redness, swelling, drainage from the wound or any other concerns. Also return for headaches, vomiting, change in mentation, weakness of any kind or any other concerns.
Interventions
Interventions:
*Risk Screen - Suicide Last Done: 12/09/24 19:44
*General Assessment Last Done: 12/09/24 19:44
*Neglect/Abuse Screening Last Done: 12/09/24 19:44
*ED- Fall Risk Assessment Last Done: 12/09/24 20:22
*ED COVID-19 Vaccine History Last Done: 12/09/24 19:44
Discharge Date and Time
Print Language: QATARI
[2024-12-09] MEDS: ADACEL 0.5 ML IM (23:23)
[2024-12-09 23:30] VITALS: BP 158/77
== END 2024-12-09 23:31 | disposition home or self-care (01) ==
LOC: EMR 19:36
PROVIDERS: EMERGENCY PHYSICIAN Emergency Medicine; FAMILY PHYSICIAN Nurse Practitioner Family; PRIMARYCARE PHYSICIAN Family Medicine Sports Medicine
DX: S01.81XA Laceration without foreign body of other part of head, initial encounter (principal); W22.8XXA Striking against or struck by other objects, initial encounter; Z23 Encounter for immunization; I10 Essential (primary) hypertension; E78.00 Pure hypercholesterolemia, unspecified; E11.9 Type 2 diabetes mellitus without complications; Z83.3 Family history of diabetes mellitus; Z98.84 Bariatric surgery status; Z86.14 Personal history of Methicillin resistant Staphylococcus aureus infection
CPT/HCPCS: 99282; 12011; 90471; 90715

== ENCOUNTER 2025-04-26 19:07 | Emergency (ER) | payer OTHER, SELFPAY ==
[2025-04-26 19:09] VITALS: BP 190/83
[2025-04-26 19:27] LABS: Hematocrit 35.8 % (39.0-52.0); Hemoglobin 12.2 g/dL (13.0-18.0); Mean Corp Hgb Conc. 34.1 g/dL (33.0-37.0); Mean Corpuscular Volume 86.3 fL (80.0-94.0); Nucleated Red Blood Cells % 0 % (-); Platelet Count 211 10^3/uL (130-400); Red Cell Dist. Width 14.4 % (11.5-14.5)
[2025-04-26 19:49] LABS: ALT (SGPT) 25 U/L (0-50); AST (SGOT) 23 U/L (17-59); Albumin 3.9 g/dl (3.5-5.0); Alkaline Phosphatase 91 U/L (38-126); Blood Urea Nitrogen 29 mg/dl (9-20); Calcium 9.3 mg/dl (8.4-10.2); Carbon Dioxide 23 mmol/L (22-30); Chloride 109 mmol/L (98-107); Glucose 317 mg/dl (70-99); Potassium 4.4 mmol/L (3.5-5.1); Sodium 137 mmol/L (135-145); Total Protein 7.0 g/dl (6.3-8.2); eGFR > 60.00
--- NOTE | 2025-04-26 21:19 | ED.GENMED ---
History of Present Illness
General
Chief Complaint: Skin Problem
Source: patient
Exam Limitations: none
Time Seen by Provider: 04/26/25 21:10
Nursing documentation reviewed up to this point in time: agreed with
History of Present Illness
History of Present Illness:
54-year-old male with a past medical history of hypertension, hyperlipidemia, diabetes who presents to the emergency room for evaluation of increasing redness and pain around right foot wound. Patient reports that he developed a blister on his foot
a little over a week ago that ultimately opened up and became a wound. He was seen by his primary chief privacy officer (Dr. Guzman) and has been on antibiotics (doxycycline) for the past few days but despite this intervention he has noticed increased redness,
pain and odor from the wound which prompted his presentation to the ER. He has not had any fevers or chills or any other acute complaints.
Past History
Past History
ED Past Medical History: HTN, Hypercholesterolemia, NIDDM and Other (MRSA)
ED Past Surgical History: Orthopedic and Other (gastric sleeve 2019)
Social History
Tobacco: Non-smoker
Alcohol: Occasional
Drug: None
Personal:
Living: with family
Family History
Family History: Diabetes
Review of Systems
Review of Systems
All Other Systems: ROS reviewed and negative except as documented in HPI and ROS
Constitutional: Denies fever or chills
Respiratory: Reports trouble breathing
Cardiac: Denies chest pain
ABD/GI: Denies abdominal pain
Skin: Reports other (Wound on right foot with surrounding redness)
Phy Exam
Physical Exam
Physical Exam:
General: Well appearing and non-toxic
HEENT: protecting airway
Neck: appears supple
CV: No evidence of cyanosis
Resp: No accessory muscle use
Abd: Non-distended
Extremities: No deformities
Neuro: Alert
Psych: Normal affect
Skin: Patient has ulceration on the right foot essentially on the ball of the foot at the base of the first toe extending towards the PIP joint on the first toe; foul odor from wound with some scant purulence noted and erythema extending
circumferentially around the wound and streaking up the dorsum of the foot (pictured below)
Scores
Heart Failure Risk
Heart Failure Risk Score: Not Applicable
Heart Score for Chest Pain Patients
STEMI patient?: Not applicable
Withdrawal Assessment of Alcohol
Withdrawal Assessment Completed?: Not applicable
Course
Orders/Labs/Results
Orders:
Orders
04/26/25 19:21
Complete Blood Count/With Diff Urgent
Comprehensive Metabolic Panel Urgent
04/26/25 21:41
Wound Culture [Wound/Abscess/Other Culture] Urgent
KANIKA Source: Foot
Specimen Description: Right
Abnormal Lab Results
04/26/25
19:21
RBC 4.15 L 10^6/uL
(4.70-6.10)
Hgb 12.2 L g/dL
(13.0-18.0)
Hct 35.8 L %
(39.0-52.0)
MPV 10.8 H fL
(7.4-10.4)
Chloride 109 H mmol/L
(98-107)
BUN 29 H mg/dl
(9-20)
Glucose 317 H mg/dl
(70-99)
04/26/25 19:21
04/26/25 19:21
Vital Signs
Initial and Last Documented VS:
Initial Vital Signs
Temp Pulse Resp BP Pulse Ox
36.8 C 64 16 190/83 95
04/26/25 19:09 04/26/25 19:09 04/26/25 19:09 04/26/25 19:09 04/26/25 19:09
Last Documented Vital Signs
Temp Pulse Resp BP Pulse Ox
36.8 C 64 16 190/83 95
04/26/25 19:09 04/26/25 19:09 04/26/25 19:04/26/25 19:04/26/25 21:23
MDM/Problems Addressed
Differential Diagnosis Includes:
Cellulitis/wound infection
MDM/Problems Addressed:
54-year-old male presents with diabetic foot wound infection. Hypertensive but otherwise normal vitals. Exam as above. Labs were sent off including a CBC and a CMP�chemistry was significant for hyperglycemia with a glucose of 317. Patient has
already been on oral antibiotics but reports worsening symptoms. Will discussed with podiatry but suspect will need IV antibiotics and debridement given failure of outpatient antibiotics and poorly controlled diabetes.
Discussed case with chief privacy officer on-call here at [facility] as well as patient's own chief privacy officer (Dr. Guzman)�it sounds like patient has a follow-up scheduled for this Friday with his chief privacy officer in the office. Both considered reasonable to broaden
antibiotic coverage, send new culture and have him follow-up in the office as scheduled given no signs of sepsis and relatively localized infection. Can decide at that point regarding debridement and further management. I had a long discussion
with the patient about options for treatment including admission for IV antibiotics versus broadening of oral antibiotics and scheduled follow-up on Friday as above�patient strongly prefers discharge on broader oral antibiotics. Using shared
decision making we will discharge with close follow-up. We did speak at length about his blood glucose�it sounds like this is a known issue for him and he says that he is supposed to start Jardiance tomorrow.
Chronic conditions affecting care:
Diabetes
Acute Exacerbation and/or Progression of Chronic Illness:
Acutely hypertensive
Acute Exacerbation and/or Progression of Chronic Illness: HTN
*Pulse Oximetry
SaO2: 95
Oxygen Mode of Delivery: Room air
Patient hypoxic: no (95%)
*Critical Care Note
Total Time (30-74mins, 75-104mins- exclusive of procedures): Not Applicable
Data Reviewed
Source: patient and spouse
Patient Management
Discussion with other providers: Captain Waiter/Waitress (Discussed with podiatry)
Escalation/DeEscalation of care consider admission/obs:
Offered admission�shared decision making plan for discharge with close follow-up plan
ED Attending Note
-
Portions of this chart may have been created with voice recognition software.� Occasional wrong word or��sound alike� substitutions may have occurred due to the inherent limitations of voice recognition software.
Discharge Plan
Departure
Prescriptions:
No Action
mupirocin 2 % ointment
1 applic topical BID Qty: 15 0RF
Rx Instructions:
apply to nostrils twice daily
metformin 500 mg tablet
500 mg PO BID@0800,1700
atorvastatin 10 mg tablet
10 mg PO HS
lisinopril-hydrochlorothiazide 20-25 mg tablet
1 tab PO DAILY
tadalafil 10 mg tablet
10 mg PO DAILY PRN (Reason: ed)
Trulicity 1.5 mg/0.5 mL pen injector
1.5 mg SC WILSON
multivitamin Tablet
1 tab PO DAILY
omega 5-bcn-nfe-fish oil [Fish Oil] 1,000 mg (120 mg-180 mg) Capsule
1 cap PO DAILY
amlodipine 5 mg Tablet
5 mg PO DAILY Qty: 0 0RF
linezolid 600 mg Tablet
600 mg PO BID Qty: 22 0RF
sulfamethoxazole-trimethoprim [Bactrim DS] 800-160 mg tablet
2 tab PO BID 3 Days Qty: 12 0RF
amoxicillin-pot clavulanate 875-125 mg tablet
1 tab PO BID Qty: 14 0RF
mupirocin 2 % ointment
1 applic topical TID 7 Days Qty: 22 0RF
Referrals:
Mariely Nunes CRNP [Family Provider, Family Practice]
Interventions
Interventions:
*Risk Screen - Suicide Last Done: 04/26/25 19:11
*Neglect/Abuse Screening Last Done: 04/26/25 19:11
Discharge Date and Time
Print Language: HEBREW
[2025-04-26] MEDS: LEVAQUIN 750 MG PO (22:00)
[2025-04-26 22:35] VITALS: BP 180/90
== END 2025-04-26 22:38 | disposition home or self-care (01) ==
LOC: EMR 19:07
PROVIDERS: Emergency Medicine; EMERGENCY PHYSICIAN Emergency Medicine; FAMILY PHYSICIAN Nurse Practitioner
DX: L08.9 Local infection of the skin and subcutaneous tissue, unspecified (principal); M79.671 Pain in right foot; I10 Essential (primary) hypertension; E11.9 Type 2 diabetes mellitus without complications; E11.65 Type 2 diabetes mellitus with hyperglycemia; E78.00 Pure hypercholesterolemia, unspecified; Z98.84 Bariatric surgery status
CPT/HCPCS: 99283; 80053; 85025; 87070; 87077; 87147; 87205

== ENCOUNTER → 2025-06-14 09:44 | Outpatient (REF) | payer OTHER, SELFPAY | LOC: RAD 09:44 | PROVIDERS: ATTENDING PHYSICIAN Nurse Practitioner Adult Health; FAMILY PHYSICIAN Nurse Practitioner Family | DX: Z98.84 Bariatric surgery status (principal); E66.813 Obesity, class 3; I10 Essential (primary) hypertension; E11.69 Type 2 diabetes mellitus with other specified complication; E66.9 Obesity, unspecified; E78.49 Other hyperlipidemia; Z79.899 Other long term (current) drug therapy | CPT/HCPCS: 74246 ==